=== PATIENT | female | born 1935 | race Caucasian/White ===

== ENCOUNTER 2018-06-11 15:13 | Inpatient (IN) ==
[2018-06-13] MEDS ORDERED: NON-FORMULARY MEDICATION 1 EACH EACH (Ondansetron [Zofran] 8 MG) PO PRN (19:03)
[2018-06-13] MEDS ORDERED: Ondansetron ODT 4 MG TAB.RAPDIS PO PRN (19:29)
[2018-06-13] MEDS: *HR* GlipiZIDE 5 MG TABLET PO SCH (21:09)
[2018-06-13] MEDS: Famotidine 20 MG TABLET PO SCH (21:10)
[2018-06-13] MEDS: Insulin DETEMIR 100 UNIT/ML X5UNITS SQ SCH (21:10)
--- NOTE | 2018-06-13 22:02 | Internal Med History&Physical ---
Date of Encounter: 06/14/18 Time of Encounter: 21:32 Assessment and Plan (1) Right sided cerebral hemisphere cerebrovascular accident (CVA) Current visit: Yes Status: Acute Right-sided CVA with dense left hemiplegia. She reportedly is maximum assistance. She will be seen by PT, OT, recreational therapy and others starting tomorrow. There appears be some neglect for the left side. No skin breakdown or edema. Frequent turning and positioning recommended. Plavix and aspirin. Patient has been worked up including carotid Doppler, echocardiogram, CT/MRI/MRA (2) Left-sided muscle weakness Current visit: Yes Status: Acute Dense left hemiplegia from right-sided CVA. As above. PT, OT, recreational therapy consults pending (3) History of chronic kidney disease Current visit: Yes Status: Acute History chronic kidney disease and followed by Dr. Mills. Currently renal function is doing well. We will continue monitoring closely. (4) Diabetes Current visit: Yes Status: Acute History of insulin-dependent diabetes mellitus. I was told that she is eating well. We will monitor blood sugars. She has Lantus each evening and glipizide twice a day. We will watch for hypoglycemic reactions. 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 Will follow at this point. Maintain current medications. Qualifiers: Hypertension type: essential hypertension Qualified Code(s): I10 - Essential (primary) hypertension (6) Aortic stenosis, severe Current visit: Yes Status: Chronic History of aortic stenosis followed by Dr. See. Patient had recent echocardiogram was 60-70% ejection fraction and concentric LVH. No history of congestive heart failure or angina. Being followed by cardiology. No indication for aortic valve intervention at the present time. (7) DVT prophylaxis Current visit: Yes Status: Acute Because she is basically bed bound we will use Lovenox for DVT prophylaxis until she is more mobile Internal Medicine - H&P: HPI Chief complaint: "I had a stroke" Admitted From: Hospital to Hospital Transfer Plans for Post Hospital Care: Home History of present illness: Ms. Kapadia is a 82 year old female with chronic history of diabetes, chronic kidney failure, hypertension, aortic stenosis was recently diagnosed as having a CVA is admitted to our rehab unit. Patient states that about 10 days ago or so she had a stroke when she was trying to get out of bed to a bedside commode and she thought her knee gave out, actually she had a left hemiplegia. She was brought to the emergency room at [facility] and had a negative CT scan was transferred to [facility]. Subsequent MRI was consistent with at least 2 infarcts in the anterior cerebral artery distribution. She has dense left hemiplegia. She had a workup including echocardiogram (6-65% EF with moderate LVH and severe aortic stenosis), carotid Doppler (bilateral nonstenotic plaque), MRA (right anterior cerebral artery infarction). She was placed on Plavix and aspirin and her statin was changed to simvastatin. She is now here for physical therapy. Patient denies any acute complaints of chest pain, palpitations, dyspnea, abdominal pain. She states she has had no troubles with her bowel or bladder control. However, I do not think the she is a very good historian. She know she cannot move her left arm or leg, but seems rather blase about it. She says she lives in a one-story house and only one step to enter. But this needs to be confirmed as I feel she is a rather poor historian at times. Past Med Surg Social Fam HX - Past Medical History Medical history: diabetes, GERD, hyperlipidemia, hypertension, renal disease (Stage III chronic kidney disease), other (Vitamin D deficiency) Additional medical history: Aortic stenosis Psychiatric history: no psych history - Past Surgical History Surgical History: knee replacement (Bilateral knee replacement, one by Dr. Schrader, one by Dr. Chacko) Additional surgical history: bilateral knee replacements - Social History Smoking Status: Never smoker Alcohol use: none Drug use: none Current living situation: Home - Independent (She lives in a one-story home. She says she has one step to get into the house. Could not confirm handicap accessibility) Recent Out of Country Travel Within the Last 8 Weeks: No Exposure or Possible Exposure to Illness During Travel: No - Family History Daughter Hx Family Cardiac Disorders: Yes (htn) Hx Family Neurologic Disorders: Yes (bells palsy) Mother Living Status: Age at : 77 Cause of : Diabetes CVA Father Living Status: Age at : 53 Cause of : Nonalcoholic cirrhosis Sister Living Status: Age at : 61 Cause of : Lung disease, COPD, lung transplant, heart disease Internal Medicine - H&P: Meds Aspirin [Lo-Dose Aspirin EC] 81 mg PO DAILY 02/09/17 [History] Lovastatin [Mevacor] 20 mg PO HS 02/09/17 [History] Multivitamin [Multivitamins] 1 cap PO DAILY 02/09/17 [History] Cholecalciferol (D-3) [Vitamin D] 5,000 unit PO DAILY 06/09/18 [History] Metoprolol Succinate [Toprol Xl] 25 mg PO DAILY 06/09/18 [History] Ondansetron [Zofran] 8 mg PO BID PRN 06/09/18 [History] glipiZIDE [Glipizide] 10 mg PO BID 06/09/18 [History] Ranitidine HCl [Acid Occupational Therapy Professor] 150 mg PO BID 06/10/18 [History] Clopidogrel [Plavix] 75 mg PO DAILY tablet 06/13/18 [Rx] Insulin Glargine,Hum.rec.anlog [Lantus Solostar] 40 unit SQ HS #0 06/13/18 [Rx] Allergy/AdvReac Type Severity Reaction Status Date / Time epinephrine AdvReac See Verified 06/10/18 16:40 Comments - Constitutional Constitutional: falls (She fell when she got out of bed with her CVA. She denies any sequela), weakness (Left-sided weakness) - EENT Eyes: no change in vision, no pain Nose, mouth and throat: other (She has a full set of dentures), no sinus pressure, no sore throat - Cardiovascular Cardiovascular ROS IM: no chest pain, no dyspnea, no dyspnea on exertion, no edema, no irregular heart rhythm, no lightheadedness, no palpitations - Respiratory Respiratory: no dyspnea, no hemoptysis, no dyspnea on exertion, no wheezing, no chest congestion - Gastrointestinal Gastrointestinal: no change in bowel habits, no constipation, no diarrhea, no hematochezia, no melena, no vomiting - Genitourinary Genitourinary: no urinary incontinence (Though nurses report she is incontinent) Menstruation: post menopausal - Musculoskeletal Additional comments: Weakness and left arm and leg as in history of present illness - Integumentary Integumentary IM: no rash - Neurological Neurological ROS: focal weakness (Left arm and leg weakness), no dizziness, no loss of vision - Psychiatric Psychiatric: no confusion, no depression - Constitutional Vitals: Temp Pulse Resp BP Pulse Ox 98.8 F 88 17 159/88 92 06/13/18 17:51 06/13/18 17:51 06/13/18 17:51 06/13/18 17:51 06/13/18 17:51 General appearance: Present: A&O X 3, pleasant, no acute distress, obese. Absent: answers questions appropriately (She told me that she was not incontinent of urine or stool. The nurses said otherwise) - Head Head exam: Present: atraumatic - Eye Eye exam: Present: EOMI, PERRL. Absent: scleral icterus Additional comments: I first saw her she was neglecting the left side/visual field cut. The later she was able to visualize in all feldman and follow some commands. She has short attentions span for that though. - ENT ENT exam: Present: mucous membranes moist, TM's normal bilaterally. Absent: normal oropharynx (Full set of dentures) - Neck Neck exam general surgery: Absent: lymphadenopathy, tenderness Additional comments: Mild bilateral carotid bruits left worse than right - Respiratory Respiratory exam: Present: CTAB. Absent: accessory muscle use, decreased breath sounds, respiratory distress, wheezes - Cardiovascular Cardiovascular exam: Present: RRR, +S1, +S2, systolic murmur (3/6 systolic murmur at the outlet with radiation to the apex) - GI/Abdominal GI/Abdominal exam: Present: soft. Absent: guarding, hepatomegaly, mass, rebound, tenderness - Extremities Exam Extremities exam: Absent: calf tenderness, mottling, pedal edema, tenderness - Neurological Exam Neurological exam: Present: CN II-XII intact (Gaze is conjugate but intermittently seems to be neglecting or short attention for visual feldman bilaterally) Additional comments: Dense left hemiplegia with no spontaneous movement of the left upper or lower extremity. No volitional movement noted. Upgoing toes on Babinski testing on the left side. No skin breakdown or edema. - Skin Additional comments: I found no skin breakdown on my exam. Internal Med - H&P Results - Labs CBC & Chem 7: 12/27/18 05:35 06/14/18 05:35 Labs: Labs are scheduled for tomorrow
[2018-06-14] MEDS: *HR* Enoxaparin 40 MG/0.4 ML SYRINGE SQ SCH (05:03)
[2018-06-14 06:01] LABS: Basophils # 0.1 K/mcL (0.0-0.2); Basophils % 0.5 %; Eosinophils # 0.3 K/mcL (0.0-0.6); Eosinophils % 2.3 %; Hematocrit 44.6 % (35.3-44.9); Hemoglobin 15.1 g/dL (11.5-15.4); Immature Granulocytes % 0.5 % (0-4); Lymphocytes # 1.7 K/mcL (0.6-4.6); Lymphocytes % 12.9 %; Mean Corpuscular HGB Conc 33.9 g/dL (31.6-35.5); Mean Corpuscular Hemoglobin 30.2 pg (28.0-33.3); Mean Corpuscular Volume 89.2 fL (83.0-100.0); Mean Platelet Volume 10.9 fL (9.4-12.4); Monocytes # 1.1 K/mcL (0.0-1.3); Monocytes % 8.1 %; Neutrophils # 10.1 K/mcL (1.6-8.9); Platelet Count 192 K/mcL (140-400); Red Cell Distribution Width 14.4 % (11.5-14.5); Segmented Neutrophils % 75.7 %
[2018-06-14 06:18] LABS: BUN/Creatinine Ratio 23 (6-26); Blood Urea Nitrogen 23 mg/dL (8-23); Calcium 8.9 mg/dL (8.6-10.3); Carbon Dioxide 24 mEq/L (23-29); Chloride 103 mEq/L (98-107); Glucose 131 mg/dL (70-105); Osmolality,Calculated 287 (280-300); Potassium 3.9 mEq/L (3.5-5.1); Sodium 136 mEq/L (136-145); eGFR For Non-African Americans 54 (> 60)
--- NOTE | 2018-06-14 07:44 | Internal Med Progress Note ---
Date of Encounter: 06/14/18 Time of Encounter: 07:38 - Assessment and plan (1) Right sided cerebral hemisphere cerebrovascular accident (CVA) Current Visit: Yes Status: Acute Assessment and plan: Right hemispheric CVA with dense left hemiplegia. Some movement noted and left forearm and hand today. Speech and swallowing intact. Short attention span noted. I suspect some neglect on the left side as well. (2) Left-sided muscle weakness Current Visit: Yes Status: Acute Assessment and plan: As above. Shown improvement since last night. (3) History of chronic kidney disease Current Visit: Yes Status: Acute Assessment and plan: Renal function is currently normal. (4) Diabetes Current Visit: Yes Status: Acute Assessment and plan: Glucose 133 this morning. We will continue to follow and use her usual medication. Qualifiers: Diabetes mellitus type: type 2 Diabetes mellitus fpc insulin use: unspecified intermediate designer insulin use status Diabetes mellitus complication status: with unspecified complications Qualified Code(s): E11.8 - Type 2 diabetes mellitus with unspecified complications (5) Hypertension Current Visit: No Status: Acute Assessment and plan: Blood pressure is under good control. Qualifiers: Hypertension type: essential hypertension Qualified Code(s): I10 - Essential (primary) hypertension (6) Aortic stenosis, severe Current Visit: Yes Status: Chronic Assessment and plan: History of aortic stenosis without CHF or angina. (7) DVT prophylaxis Current Visit: Yes Status: Acute Assessment and plan: Because she is going to be in bed and /or immobile a lot we will use Lovenox for now. - Subjective Interval history: Patient states that she rested okay. She denies any cardiac or respiratory symptoms. She knows she can not move the left arm or leg. She remembered who I was - Constitutional Vitals: Temp Pulse Resp BP Pulse Ox 98.3 F 80 18 155/95 95 06/14/18 05:07 06/14/18 05:07 06/14/18 05:07 06/14/18 05:07 06/14/18 05:07 General appearance: Present: A&O X 3, pleasant, no acute distress, obese. Absent: answers questions appropriately (She told me that she was not incontinent of urine or stool. The nurses said otherwise) Exam: She is sitting up in a wheelchair at the sink having had 2 person maximum assist to get into the wheelchair - Eye Additional comments: She can follow my finger in all feldman, but the attention span for that is very short - Respiratory Respiratory exam: Present: CTAB - Cardiovascular Cardiovascular exam: Present: RRR, +S1, +S2, systolic murmur (3/6 systolic murmur at the outlet and left sternal border) - GI/Abdominal GI/Abdominal exam: Present: soft. Absent: tenderness - Extremities Exam Extremities exam: Absent: calf tenderness, pedal edema, tenderness - Neurological Exam Additional comments: Her visual feldman appear to be intact but short attention span. While sitting up in a chair today she was unable to raise her left shoulder. She did have tone in the left forearm against gravity and had slight hand grasp. I could not elicit movement in the left lower extremity or toes, physical therapy said that she had some reflux spasm with movement. No apparent speech abnormalities. She has somewhat of a masklike face and stair, but has spontaneous speech appropriate. She had told me last night that she lives on one floor of a house but could not remember how many steps to get in. She told the physical therapist that she had a two-story home, "the true bathroom is upstairs" and she uses a bedside commode. I did not do a full Mini-Mental status examination. Internal Medicine: Result - Labs CBC & Chem 7: 06/14/18 05:35 06/14/18 05:35 Labs: Short CBC 06/14/18 Range/Units 05:35 WBC 13.3 H (4.3-11.1) K/mcL Hgb 15.1 (11.5-15.4) g/dL Hct 44.6 (35.3-44.9) % Plt Count 192 (140-400) K/mcL Neutrophils # 10.1 H (1.6-8.9) K/mcL BMP 06/14/18 05:35 Sodium 136 Potassium 3.9 Chloride 103 Carbon Dioxide 24 BUN 23 Creatinine 0.99 Glucose 131 H Calcium 8.9 Minimally elevated white blood cell count which is stable from when she was at [place]. Electrolytes and renal function are stable. Glucose minimally elevated. Consult Discharge Plan - Plan Referrals: Opal Escalona, MAINTENANCE TEAM MEMBER [Primary Care Provider] -
[2018-06-14] MEDS: Famotidine 20 MG TABLET PO SCH ×2 (08:10→21:02)
[2018-06-14] MEDS: Cholecalciferol (D-3) 1,000 UNIT TABLET PO SCH (08:10)
[2018-06-14] MEDS: Metoprolol XL (24 HR) Succ 25 MG TAB.ER.24H PO SCH (08:10)
[2018-06-14] MEDS: Aspirin Enteric Coated 81 MG Tablet PO SCH (08:10)
[2018-06-14] MEDS: Multivit/Ca/Min/Fe/FA 1 TAB TABLET PO SCH (08:10)
[2018-06-14] MEDS: *HR* GlipiZIDE 5 MG TABLET PO SCH ×2 (08:10→21:01)
[2018-06-14] MEDS: Insulin DETEMIR 100 UNIT/ML X5UNITS SQ SCH (21:02)
[2018-06-15] MEDS: *HR* Enoxaparin 40 MG/0.4 ML SYRINGE SQ SCH (04:54)
--- NOTE | 2018-06-15 08:29 | Internal Med Progress Note ---
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 She is completely flaccid on the outside she is on aspirin and a statin and Plavix (2) Left-sided muscle weakness Current Visit: Yes Status: Acute (3) Diabetes Current Visit: Yes Status: Acute Assessment and plan: Sugars are up and go ahead and add sliding scale and continue home medicine of Lantus and glipizide. 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 (4) Hypertension Current Visit: No Status: Acute Assessment and plan: On her home medication will continue to watch Qualifiers: Hypertension type: essential hypertension Qualified Code(s): I10 - Essential (primary) hypertension (5) Aortic stenosis, severe Current Visit: Yes Status: Chronic Assessment and plan: Continue to watch she does not have any chest pain or shortness of breath (6) History of chronic kidney disease Current Visit: Yes Status: Acute Assessment and plan: At baseline (7) DVT prophylaxis Current Visit: Yes Status: Acute Assessment and plan: She is on Lovenox - Subjective Interval history: She does not have any current complaints this morning she denies chest pain shortness of breath coughing she denies pain she denies dizziness. She is up in the dining room. She states her bowels and bladder been okay. - Constitutional Vitals: Temp Pulse Resp BP Pulse Ox 98.3 F 71 16 138/83 92 06/15/18 05:00 06/15/18 05:00 06/15/18 05:00 06/15/18 05:00 06/15/18 05:00 General appearance: Present: A&O X 3, pleasant, no acute distress, obese. Absent: answers questions appropriately (She told me that she was not in continent of urine or stool. The nurses said otherwise) - Head Head exam: Present: atraumatic - Respiratory Respiratory exam: Present: CTAB - Cardiovascular Cardiovascular exam: Present: RRR. Absent: systolic murmur - GI/Abdominal GI/Abdominal exam: Present: normal bowel sounds, soft, no peritoneal signs. Absent: mass, tenderness - Extremities Exam Extremities exam: Present: pedal edema - Neurological Exam Neurological exam: Absent: no focal deficits (Completely flaccid left upper and lower extremities) - Skin Skin exam: Present: dry, warm. Absent: rash Internal Medicine: Result - Labs CBC & Chem 7: 06/14/18 05:35 06/14/18 05:35 Consult Discharge Plan - Plan Referrals: Opal Escalona, WASTEWATER TREATMENT ENGINEER [Primary Care Provider] -
[2018-06-15] MEDS: Multivit/Ca/Min/Fe/FA 1 TAB TABLET PO SCH (09:16)
[2018-06-15] MEDS: Cholecalciferol (D-3) 1,000 UNIT TABLET PO SCH (09:16)
[2018-06-15] MEDS: Metoprolol XL (24 HR) Succ 25 MG TAB.ER.24H PO SCH (09:16)
[2018-06-15] MEDS: Aspirin Enteric Coated 81 MG Tablet PO SCH (09:16)
[2018-06-15] MEDS: *HR* GlipiZIDE 5 MG TABLET PO SCH ×2 (09:16→21:45)
[2018-06-15] MEDS: Famotidine 20 MG TABLET PO SCH ×2 (09:16→21:45)
[2018-06-15] MEDS ORDERED: D5% in Water 1,000 ML IVC PRN (09:27)
[2018-06-15] MEDS ORDERED: Dextrose Gel 15 GM/37.5 ML TUBE PO PRN ×2 (09:27)
[2018-06-15] MEDS ORDERED: *HR* Dextrose 50 % in Water (Syg) 50 ML SYRINGE IVP PRN (09:27)
[2018-06-15] MEDS: Insulin LISPRO 300 UNITS/3 ML VIAL SQ SCH ×3 (12:34→21:45)
[2018-06-15] MEDS: Insulin DETEMIR 100 UNIT/ML X5UNITS SQ SCH (21:45)
[2018-06-16] MEDS: *HR* Enoxaparin 40 MG/0.4 ML SYRINGE SQ SCH (06:00)
[2018-06-16] MEDS: Famotidine 20 MG TABLET PO SCH ×2 (08:03→20:42)
[2018-06-16] MEDS: Aspirin Enteric Coated 81 MG Tablet PO SCH (08:03)
[2018-06-16] MEDS: Multivit/Ca/Min/Fe/FA 1 TAB TABLET PO SCH (08:03)
[2018-06-16] MEDS: *HR* GlipiZIDE 5 MG TABLET PO SCH ×2 (08:03→20:42)
[2018-06-16] MEDS: Cholecalciferol (D-3) 1,000 UNIT TABLET PO SCH (08:03)
[2018-06-16] MEDS: Insulin LISPRO 300 UNITS/3 ML VIAL SQ SCH ×4 (08:09→20:34)
[2018-06-16] MEDS: Metoprolol XL (24 HR) Succ 25 MG TAB.ER.24H PO SCH (08:14)
--- NOTE | 2018-06-16 13:33 | Internal Med Progress Note ---
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 She is completely flaccid on the outside she is on aspirin and a statin and Plavix (2) Left-sided muscle weakness Current Visit: Yes Status: Acute Assessment and plan: due to the cva (3) Diabetes Current Visit: Yes Status: Acute Assessment and plan: Sugars are up and go ahead and add sliding scale and continue home medicine of Lantus and glipizide. Qualifiers: Diabetes mellitus type: type 2 Diabetes mellitus terminal make up operator insulin use: with terminal make up operator use Diabetes mellitus complication status: with unspecified complications Qualified Code(s): E11.8 - Type 2 diabetes mellitus with unspecified complications; Z79.4 - detention (current) use of insulin (4) Hypertension Current Visit: No Status: Acute Assessment and plan: On her home medication will continue to watch Qualifiers: Hypertension type: essential hypertension Qualified Code(s): I10 - Essential (primary) hypertension (5) Aortic stenosis, severe Current Visit: Yes Status: Chronic Assessment and plan: Continue to watch she does not have any chest pain or shortness of breath (6) History of chronic kidney disease Current Visit: Yes Status: Acute (7) DVT prophylaxis Current Visit: Yes Status: Acute Assessment and plan: She is on Lovenox - Subjective Interval history: She does not have any current complaints this morning she denies chest pain shortness of breath coughing she denies pain she denies dizziness. She is up in the rehab gym. She states her bowels and bladder been okay. she did stand this am to get changed. she does have some movement of the left hand today. no purposeful movement of the left leg - Constitutional Vitals: Temp Pulse Resp BP Pulse Ox 97.9 F 74 16 144/81 97 06/16/18 11:47 06/16/18 11:47 06/16/18 11:47 06/16/18 11:47 06/16/18 11:47 General appearance: Present: A&O X 3, pleasant, no acute distress, obese. Absent: answers questions appropriately (She told me that she was not incontinent of urine or stool. The nurses said otherwise) - Head Head exam: Present: atraumatic, normocephalic - Respiratory Respiratory exam: Present: CTAB - Cardiovascular Cardiovascular exam: Present: RRR, systolic murmur - GI/Abdominal GI/Abdominal exam: Present: normal bowel sounds, soft, no peritoneal signs. Absent: guarding, tenderness - Extremities Exam Extremities exam: Present: warm. Absent: pedal edema - Neurological Exam Neurological exam: Absent: strengths equal and symetr throughout (flaccid left side but minimal left hand movement), speech deficit - Skin Skin exam: Present: dry, warm. Absent: rash Internal Medicine: Result - Labs CBC & Chem 7: 06/14/18 05:35 06/14/18 05:35 Consult Discharge Plan - Plan Referrals: Opal Escalona, OIL FIELD EQUIPMENT MECHANIC [Primary Care Provider] -
[2018-06-16] MEDS: Acetaminophen 325 MG TABLET PO PRN (14:12)
[2018-06-16] MEDS: Insulin DETEMIR 100 UNIT/ML X5UNITS SQ SCH ×2 (20:42→20:46)
[2018-06-17] MEDS: *HR* Enoxaparin 40 MG/0.4 ML SYRINGE SQ SCH (05:23)
[2018-06-17] MEDS: Insulin LISPRO 300 UNITS/3 ML VIAL SQ SCH ×4 (07:21→21:04)
[2018-06-17] MEDS: Multivit/Ca/Min/Fe/FA 1 TAB TABLET PO SCH (07:35)
[2018-06-17] MEDS: Metoprolol XL (24 HR) Succ 25 MG TAB.ER.24H PO SCH (07:36)
[2018-06-17] MEDS: Famotidine 20 MG TABLET PO SCH ×2 (07:36→21:08)
[2018-06-17] MEDS: Aspirin Enteric Coated 81 MG Tablet PO SCH (07:36)
[2018-06-17] MEDS: Cholecalciferol (D-3) 1,000 UNIT TABLET PO SCH (07:36)
[2018-06-17] MEDS: *HR* GlipiZIDE 5 MG TABLET PO SCH ×2 (07:36→21:07)
--- NOTE | 2018-06-17 11:41 | Internal Med Progress Note ---
Date of Encounter: 06/18/18 Time of Encounter: 11:40 - Assessment and plan (1) Right sided cerebral hemisphere cerebrovascular accident (CVA) Current Visit: Yes Status: Acute Assessment and plan: Her for rehabilitation PT OT RT. She is completely flaccid on the outside she is on aspirin and a statin and Plavix (2) Left-sided muscle weakness Current Visit: Yes Status: Inactive Assessment and plan: due to the cva (3) Diabetes Current Visit: Yes Status: Acute Assessment and plan: Sugars are up and go ahead and add sliding scale and continue home medicine of Lantus and glipizide. 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 (4) Hypertension Current Visit: No Status: Acute Assessment and plan: On her home medication will continue to watch, did get low, back in range now Qualifiers: Hypertension type: essential hypertension Qualified Code(s): I10 - Essential (primary) hypertension (5) Aortic stenosis, severe Current Visit: Yes Status: Chronic Assessment and plan: Continue to watch she does not have any chest pain or shortness of breath (6) History of chronic kidney disease Current Visit: Yes Status: Acute Assessment and plan: At baseline (7) DVT prophylaxis Current Visit: Yes Status: Acute Assessment and plan: She is on Lovenox - Subjective Interval history: She does not have any current complaints this morning she denies chest pain shortness of breath coughing she denies pain she denies dizziness. She is in her room. She states her bowels and bladder been okay. . she does have some movement of the left hand today same as yesterday. seh is very pleasant. no pu rposeful movement of the left leg - Constitutional Vitals: Temp Pulse Resp BP Pulse Ox 98.2 F 69 18 120/77 94 06/17/18 11:00 06/17/18 11:00 06/17/18 11:00 06/17/18 11:00 06/17/18 11:00 General appearance: Present: A&O X 3, pleasant, no acute distress, obese. Absent: answers questions appropriately (She told me that she was not incontinent of urine or stool. The nurses said otherwise) - Head Head exam: Present: atraumatic, normocephalic - Respiratory Respiratory exam: Present: CTAB - Cardiovascular Cardiovascular exam: Present: RRR, systolic murmur - Extremities Exam Extremities exam: Present: full ROM (some hand movement of the left hand othe rwise flaccid left hemiplegia), warm. Absent: pedal edema - Skin Skin exam: Present: dry, warm Internal Medicine: Result - Labs CBC & Chem 7: 06/18/18 06:00 06/18/18 06:00 Consult Discharge Plan - Plan Referrals: Opal Escalona, CERAMIC CHEMIST [Primary Care Provider] -
[2018-06-17] MEDS: Acetaminophen 325 MG TABLET PO PRN (14:53)
[2018-06-17] MEDS: Insulin DETEMIR 100 UNIT/ML X5UNITS SQ SCH ×2 (21:05→21:08)
[2018-06-18] MEDS: *HR* Enoxaparin 40 MG/0.4 ML SYRINGE SQ SCH (05:46)
[2018-06-18 06:07] LABS: Basophils % 0.3 %; Eosinophils # 0.6 K/mcL (0.0-0.6); Eosinophils % 4.7 %; Hematocrit 42.9 % (35.3-44.9); Hemoglobin 14.4 g/dL (11.5-15.4); Immature Granulocytes % 0.4 % (0-4); Lymphocytes # 2.2 K/mcL (0.6-4.6); Lymphocytes % 18.5 %; Mean Corpuscular HGB Conc 33.6 g/dL (31.6-35.5); Mean Corpuscular Volume 89.4 fL (83.0-100.0); Mean Platelet Volume 10.9 fL (9.4-12.4); Monocytes # 0.8 K/mcL (0.0-1.3); Monocytes % 6.7 %; Neutrophils # 8.4 K/mcL (1.6-8.9); Platelet Count 207 K/mcL (140-400); Segmented Neutrophils % 69.4 %
[2018-06-18 06:44] LABS: BUN/Creatinine Ratio 20 (6-26); Blood Urea Nitrogen 17 mg/dL (8-23); Calcium 8.8 mg/dL (8.6-10.3); Carbon Dioxide 25 mEq/L (23-29); Chloride 106 mEq/L (98-107); Glucose 142 mg/dL (70-105); Osmolality,Calculated 292 (280-300); Potassium 4.2 mEq/L (3.5-5.1); Sodium 139 mEq/L (136-145); eGFR For Non-African Americans > 60 (> 60)
[2018-06-18] MEDS: Insulin LISPRO 300 UNITS/3 ML VIAL SQ SCH ×4 (08:49→20:37)
[2018-06-18] MEDS: Metoprolol XL (24 HR) Succ 25 MG TAB.ER.24H PO SCH (08:49)
[2018-06-18] MEDS: Aspirin Enteric Coated 81 MG Tablet PO SCH (09:59)
[2018-06-18] MEDS: Cholecalciferol (D-3) 1,000 UNIT TABLET PO SCH (09:59)
[2018-06-18] MEDS: *HR* GlipiZIDE 5 MG TABLET PO SCH ×2 (09:59→20:34)
[2018-06-18] MEDS: Famotidine 20 MG TABLET PO SCH ×2 (09:59→20:35)
[2018-06-18] MEDS: Multivit/Ca/Min/Fe/FA 1 TAB TABLET PO SCH (09:59)
--- NOTE | 2018-06-18 13:27 | Internal Med Progress Note ---
Date of Encounter: 06/18/18 Time of Encounter: 14:16 - Assessment and plan (1) Right sided cerebral hemisphere cerebrovascular accident (CVA) Current Visit: Yes Status: Acute Assessment and plan: Her for rehabilitation PT OT RT. She is completely flaccid on the outside she is on aspirin and a statin and Plavix.she is improving having incontinence of bowels and bladder but it is getting better (2) Left-sided muscle weakness Current Visit: Yes Status: Inactive Assessment and plan: due to the cva (3) Diabetes Current Visit: Yes Status: Acute Assessment and plan: Sugars are up and go ahead and add sliding scale and continue home medicine of Lantus and glipizide. 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 insulin use: with assisted use Diabetes mellitus complication status: with unspecified complications Qualified Code(s): E11.8 - Type 2 diabetes mellitus with unspecified complications; Z79.4 - intermediate project manager (current) use of insulin (4) Hypertension Current Visit: No Status: Acute Assessment and plan: On her home medication will continue to watch, did get low, back in range now Qualifiers: Hypertension type: essential hypertension Qualified Code(s): I10 - Essential (primary) hypertension (5) Aortic stenosis, severe Current Visit: Yes Status: Chronic Assessment and plan: Continue to watch she does not have any chest pain or shortness of breath (6) History of chronic kidney disease Current Visit: Yes Status: Acute Assessment and plan: At baseline (7) DVT prophylaxis Current Visit: Yes Status: Acute Assessment and plan: She is on Lovenox - Subjective Interval history: She does not have any current complaints this morning she denies chest pain shortness of breath coughing she denies pain she denies dizziness. She is in the rehab gym She is having problems with fecal and urine incontinence, but it is improved. some of the sensation is returning she does have some movement of the left hand she is playing connect [address] the ends down checker if the arm is supported. she is very pleasant. no purposeful movement of the left leg - Constitutional Vitals: Temp Pulse Resp BP Pulse Ox 97.6 F 71 16 146/75 96 06/18/18 11:00 06/18/18 11:00 06/18/18 11:00 06/18/18 11:00 06/18/18 11:00 General appearance: Present: A&O X 3, pleasant, no acute distress, obese. Absent: answers questions appropriately (She told me that she was not incontinent of urine or stool. The nurses said otherwise) - Head Head exam: Present: atraumatic, normocephalic - Respiratory Respiratory exam: Present: CTAB - Cardiovascular Cardiovascular exam: Present: RRR, systolic murmur - Extremities Exam Extremities exam: Present: warm. Absent: full ROM (flaccid left left hand improved movement of the left hand), pedal edema Internal Medicine: Result - Labs CBC & Chem 7: 06/18/18 06:00 06/18/18 06:00 Labs: Short CBC 06/18/18 Range/Units 06:00 WBC 12.1 H (4.3-11.1) K/mcL Hgb 14.4 (11.5-15.4) g/dL Hct 42.9 (35.3-44.9) % Plt Count 207 (140-400) K/mcL Neutrophils # 8.4 (1.6-8.9) K/mcL BMP 06/18/18 06:00 Sodium 139 Potassium 4.2 Chloride 106 Carbon Dioxide 25 BUN 17 Creatinine 0.87 Glucose 142 H Calcium 8.8 Consult Discharge Plan - Plan Referrals: Opal Escalona, CAKE MAKER [Primary Care Provider] -
[2018-06-18] MEDS: Acetaminophen 325 MG TABLET PO PRN (18:37)
[2018-06-18] MEDS: Insulin DETEMIR 100 UNIT/ML X5UNITS SQ SCH (20:36)
[2018-06-18] MEDS: Melatonin 3 MG TABLET PO PRN (22:59)
[2018-06-19] MEDS: *HR* Enoxaparin 40 MG/0.4 ML SYRINGE SQ SCH (06:23)
[2018-06-19] MEDS: Multivit/Ca/Min/Fe/FA 1 TAB TABLET PO SCH (07:57)
[2018-06-19] MEDS: Cholecalciferol (D-3) 1,000 UNIT TABLET PO SCH (07:57)
[2018-06-19] MEDS: Metoprolol XL (24 HR) Succ 25 MG TAB.ER.24H PO SCH (07:57)
[2018-06-19] MEDS: Aspirin Enteric Coated 81 MG Tablet PO SCH (07:57)
[2018-06-19] MEDS: *HR* GlipiZIDE 5 MG TABLET PO SCH ×2 (07:57→21:26)
[2018-06-19] MEDS: Insulin LISPRO 300 UNITS/3 ML VIAL SQ SCH ×4 (07:57→21:32)
[2018-06-19] MEDS: Famotidine 20 MG TABLET PO SCH (07:57)
--- NOTE | 2018-06-19 13:19 | Internal Med Progress Note ---
Date of Encounter: 06/19/18 Time of Encounter: 13:15 - Assessment and plan (1) Right sided cerebral hemisphere cerebrovascular accident (CVA) Current Visit: Yes Status: Acute Assessment and plan: Her for rehabilitation PT OT RT. She is completely flaccid on the outside she is on aspirin and a statin and Plavix.she is improving having incontinence of bowels and bladder but it is getting better, she is participating in therapy well (2) Left-sided muscle weakness Current Visit: Yes Status: Inactive (3) Diabetes Current Visit: Yes Status: Acute Assessment and plan: Sugars are up and go ahead and add sliding scale and continue home medicine of Lantus and glipizide. Qualifiers: Diabetes mellitus type: type 2 Diabetes mellitus manager intermediate insulin use: with manager intermediate use Diabetes mellitus complication status: with unspecified complications Qualified Code(s): E11.8 - Type 2 diabetes mellitus with unspecified complications; Z79.4 - prison (current) use of insulin (4) Hypertension Current Visit: No Status: Acute Qualifiers: Hypertension type: essential hypertension Qualified Code(s): I10 - Essential (primary) hypertension (5) Aortic stenosis, severe Current Visit: Yes Status: Chronic (6) History of chronic kidney disease Current Visit: Yes Status: Acute (7) DVT prophylaxis Current Visit: Yes Status: Acute - Subjective Interval history: She does not have any current complaints this morning she denies chest pain shortness of breath coughing she denies pain she denies dizziness. She is in the her room in bed She is having problems with fecal and urine incontinence, but it is improved. some of the sensation is returning she does have some movement of the left hand she is able to lift it up even more today. she is very pleasant. no purposeful movement of the left leg - Constitutional Vitals: Temp Pulse Resp BP Pulse Ox 97.7 F 73 16 167/75 94 06/19/18 12:29 06/19/18 12:29 06/19/18 12:29 06/19/18 12:29 06/19/18 12:29 General appearance: Present: A&O X 3, pleasant, no acute distress, obese. Absent: answers questions appropriately (She told me that she was not incontinent of urine or stool. The nurses said otherwise) - Head Head exam: Present: atraumatic, normocephalic - Respiratory Respiratory exam: Present: CTAB - Cardiovascular Cardiovascular exam: Present: RRR, systolic murmur - GI/Abdominal GI/Abdominal exam: Present: normal bowel sounds, soft, no peritoneal signs. Absent: guarding, tenderness - Extremities Exam Extremities exam: Present: warm. Absent: pedal edema - Neurological Exam Neurological exam: Absent: strengths equal and symetr throughout (She does have increased range of motion of the left hand and elbow today. Still flaccid left leg) Internal Medicine: Result - Labs CBC & Chem 7: 06/18/18 06:00 06/18/18 06:00 Consult Discharge Plan - Plan Referrals: Opal Escalona, BEHAVIORAL SERVICES TECH [Primary Care Provider] -
[2018-06-19] MEDS: Acetaminophen 325 MG TABLET PO PRN (13:34)
[2018-06-19] MEDS: Melatonin 3 MG TABLET PO PRN (21:26)
[2018-06-19] MEDS: Insulin DETEMIR 100 UNIT/ML X5UNITS SQ SCH (21:27)
[2018-06-20] MEDS: *HR* Enoxaparin 40 MG/0.4 ML SYRINGE SQ SCH (05:29)
[2018-06-20] MEDS: Insulin LISPRO 300 UNITS/3 ML VIAL SQ SCH ×4 (07:07→22:22)
[2018-06-20] MEDS: *HR* GlipiZIDE 5 MG TABLET PO SCH ×2 (08:16→22:17)
[2018-06-20] MEDS: Famotidine 20 MG TABLET PO SCH (08:17)
[2018-06-20] MEDS: Cholecalciferol (D-3) 1,000 UNIT TABLET PO SCH (08:17)
[2018-06-20] MEDS: Metoprolol XL (24 HR) Succ 25 MG TAB.ER.24H PO SCH (08:17)
[2018-06-20] MEDS: Aspirin Enteric Coated 81 MG Tablet PO SCH (08:17)
[2018-06-20] MEDS: Multivit/Ca/Min/Fe/FA 1 TAB TABLET PO SCH (08:17)
--- NOTE | 2018-06-20 10:27 | Internal Med Progress Note ---
Date of Encounter: 06/20/18 Time of Encounter: 10:20 - Assessment and plan (1) Right sided cerebral hemisphere cerebrovascular accident (CVA) Current Visit: Yes Status: Acute Assessment and plan: She is improving with her left hemiplegia. Marked improvement since I last saw her last . She walked 15 feet today. Improvement in hand grasp and dorsiflexion of foot (2) Left-sided muscle weakness Current Visit: Yes Status: Inactive (3) History of chronic kidney disease Current Visit: Yes Status: Acute (4) Diabetes Current Visit: Yes Status: Acute Assessment and plan: Sugars are being followed. Recently good control. Sliding scale available. Qualifiers: Diabetes mellitus type: type 2 Diabetes mellitus fdc insulin use: with exterminator use Diabetes mellitus complication status: with unspecified complications Qualified Code(s): E11.8 - Type 2 diabetes mellitus with unspecified complications; Z79.4 - assistant terminal manager (current) use of insulin (5) Hypertension Current Visit: Yes Status: Acute Assessment and plan: Blood pressure is under good control. Qualifiers: Hypertension type: essential hypertension Qualified Code(s): I10 - Essential (primary) hypertension (6) Aortic stenosis, severe Current Visit: Yes Status: Chronic Assessment and plan: No CHF or angina (7) DVT prophylaxis Current Visit: Yes Status: Acute - Subjective Interval history: Patient denies any cardiac or respiratory symptoms. Her bowels are moving. She thinks she is less incontinent, but that continues. She is thrilled because she walked 15 feet this morning with her walker. She is having better movement of left upper and lower extremities. No acute symptoms. Eating well. - Constitutional Vitals: Temp Pulse Resp BP Pulse Ox 98.2 F 67 16 124/78 96 06/20/18 06:48 06/20/18 06:48 06/20/18 06:48 06/20/18 06:48 06/20/18 06:48 General appearance: Present: A&O X 3, pleasant, no acute distress, obese. Absent: answers questions appropriately (Generally answers questions appropriately) - Respiratory Respiratory exam: Present: CTAB - Cardiovascular Cardiovascular exam: Present: RRR, +S1, +S2, systolic murmur (2/6 systolic murmur) - Extremities Exam Extremities exam: Absent: calf tenderness, tenderness - Neurological Exam Neurological exam: Present: CN II-XII intact Additional comments: In therapy she is able to grasp with her hand, slide the device up a pole against gravity using her biceps triceps forearm and hand grasp. She is able to raise her thigh off the bed, swing her lower leg forward and also raise her toes/dorsiflex against gravity Internal Medicine: Result - Labs CBC & Chem 7: 06/18/18 06:00 06/18/18 06:00 Consult Discharge Plan - Plan Referrals: Opal Escalona, VIBRATING SCREED OPERATOR [Primary Care Provider] -
[2018-06-20] MEDS: Acetaminophen 325 MG TABLET PO PRN (19:40)
[2018-06-20] MEDS: Insulin DETEMIR 100 UNIT/ML X5UNITS SQ SCH (22:18)
[2018-06-20] MEDS: Melatonin 3 MG TABLET PO PRN (22:18)
[2018-06-21] MEDS: *HR* Enoxaparin 40 MG/0.4 ML SYRINGE SQ SCH (05:09)
[2018-06-21] MEDS: Insulin LISPRO 300 UNITS/3 ML VIAL SQ SCH ×4 (07:42→21:30)
[2018-06-21] MEDS: Aspirin Enteric Coated 81 MG Tablet PO SCH (10:36)
[2018-06-21] MEDS: Metoprolol XL (24 HR) Succ 25 MG TAB.ER.24H PO SCH (10:37)
[2018-06-21] MEDS: Cholecalciferol (D-3) 1,000 UNIT TABLET PO SCH (10:37)
[2018-06-21] MEDS: *HR* GlipiZIDE 5 MG TABLET PO SCH ×2 (10:37→21:30)
[2018-06-21] MEDS: Famotidine 20 MG TABLET PO SCH (10:37)
[2018-06-21] MEDS: Multivit/Ca/Min/Fe/FA 1 TAB TABLET PO SCH (10:37)
--- NOTE | 2018-06-21 11:45 | Internal Med Progress Note ---
Date of Encounter: 06/21/18 Time of Encounter: 11:44 - Assessment and plan (1) Right sided cerebral hemisphere cerebrovascular accident (CVA) Current Visit: Yes Status: Acute Assessment and plan: In a week's time she is made vast improvement. Continue with PT and OT. Medically she is stable. (2) Left-sided muscle weakness Current Visit: Yes Status: Inactive Assessment and plan: As above. (3) History of chronic kidney disease Current Visit: Yes Status: Acute (4) Diabetes Current Visit: Yes Status: Acute Assessment and plan: Sugars are under reasonable control. 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 Qualifiers: Hypertension type: essential hypertension Qualified Code(s): I10 - Essential (primary) hypertension (6) Aortic stenosis, severe Current Visit: Yes Status: Chronic Assessment and plan: No angina or CHF (7) DVT prophylaxis Current Visit: Yes Status: Acute - Subjective Interval history: Patient denies any acute complaints of chest pain or acute problems. Therapy told me the patient will 45 feet today. She is assisting with toileting now. She is continent some of the time. Spontaneous use of the left upper extremity now. - Constitutional Vitals: Temp Pulse Resp BP Pulse Ox 97.7 F 64 16 133/72 96 06/21/18 06:46 06/21/18 06:46 06/21/18 06:46 06/21/18 06:46 06/21/18 06:46 General appearance: Present: A&O X 3, pleasant, no acute distress, obese Exam: I saw the patient in the therapy room. She was sitting upright and doing OT therapy with increased use of the left hand. - Neurological Exam Additional comments: I saw patient in therapy use her left arm. She can spontaneously raise her hand to the side of her head. She was scratching her face. She is manipulating large beads on a string putting them in a bucket. Still has some inattention to the left side and planning movements. Internal Medicine: Result - Labs CBC & Chem 7: 06/18/18 06:00 06/18/18 06:00 Consult Discharge Plan - Plan Referrals: Opal Escalona, DAMI [Primary Care Provider] -
--- NOTE | 2018-06-21 13:12 | Psychological Evaluation ---
Date of Encounter: 06/21/18 Time of Encounter: 09:30 History of Present Illness History of present illness: Ms. Kapadia is a 82 year old female. Patient had a stroke when she was trying to get out of bed to a bedside commode and she thought her knee gave out, actually she had a left hemiplegia. She was brought to the emergency room at [facility] and had a negative CT scan was transferred to [place]. Subsequent MRI was consistent with at least 2 infarcts in the anterior cerebral artery distribution. She has dense left hemiplegia. She had a workup including echocardiogram (6-65% EF with moderate LVH and severe aortic stenosis), carotid Doppler (bilateral nonstenotic plaque), MRA (right anterior cerebral artery infarction). Past Medical History - Psychiatric History Psychiatric history: Reports: depression Additional Psychiatric History: Pt stated she was depressed approximately 2 years ago after the of a close friend.She cried often but did not seek counseling. Home Medications and Allergies Aspirin [Lo-Dose Aspirin EC] 81 mg PO DAILY 02/09/17 [History] Lovastatin [Mevacor] 20 mg PO HS 02/09/17 [History] Multivitamin [Multivitamins] 1 cap PO DAILY 02/09/17 [History] Cholecalciferol (D-3) [Vitamin D] 5,000 unit PO DAILY 06/09/18 [History] Metoprolol Succinate [Toprol Xl] 25 mg PO DAILY 06/09/18 [History] Ondansetron [Zofran] 8 mg PO BID PRN 06/09/18 [History] glipiZIDE [Glipizide] 10 mg PO BID 06/09/18 [History] Ranitidine HCl [Acid Cotton Expert] 150 mg PO BID 06/10/18 [History] Clopidogrel [Plavix] 75 mg PO DAILY tablet 06/13/18 [Rx] Insulin Glargine,Hum.rec.anlog [Lantus Solostar] 40 unit SQ HS #0 06/13/18 [Rx] Allergy/AdvReac Type Severity Reaction Status Date / Time epinephrine AdvReac See Verified 06/10/18 16:40 Comments Social History - Social History Social History: Pt is since 1975. 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 She lives with her son and daughter in law but is independent except driving outside of local community. She attends mu-ism twice a week. She has 3 adult children and 10 grandkids. Her brittny is very important to her. - Tobacco Use Smoking Status: Never smoker - Alcohol Use Alcohol Use: none - Drug Use Drug Use: none Cognitive/Emotional Assessment - Cognitive Ability Language Function Ability: No Deficits Noted Verbal Communication Ability: Conversational Style Memory Description: Short Term Impaired Orientation: Person, Place, Time Ability to Follow Directions: Good Speech Pattern: Normal rate Calculations: Able to spell WORLD backw Additional Findings: Pt able to perform serial 3's from 20. Digits forward 5 and backward 4. Able to repeat 3/3 words and 1/3 after 5 min with no assistance with no assistance with categorical cue. Able to name pres, previous pres, and gov. Able to perform math calculations in head. There were issues with focused and sustained attention. - Emotional Status Affect Description: Blunted Coping Ability: Verbalizes positive coping skills Additional Findings: Pt noted need to "stop and think" due to attention issues and relies on her brittny to push through current situation. Insight and awareness of severity of situation is limited. Very focused only on left side of body - physical issues. Assessment & Plan - Diagnosis (1) Adjustment disorder with depressed mood - Prognosis Prognosis: Good - Treatment Plan Treatment Plan/Recommendations: will continue to follow while IP to develop and train coping strategies for managing the changes in her life since CVA and minimizing depressive symptoms. Next Session Date: 06/27/18 Procedures - Participants Therapy Participant: Patient - Session Time Session Start Time: 09:30 Session Stop Time: 10:00
[2018-06-21] MEDS: Acetaminophen 325 MG TABLET PO PRN (16:06)
[2018-06-21] MEDS: Insulin DETEMIR 100 UNIT/ML X5UNITS SQ SCH (21:30)
[2018-06-21] MEDS: Melatonin 3 MG TABLET PO PRN (21:30)
[2018-06-22] MEDS: *HR* Enoxaparin 40 MG/0.4 ML SYRINGE SQ SCH (05:35)
[2018-06-22] MEDS: Insulin LISPRO 300 UNITS/3 ML VIAL SQ SCH ×4 (07:46→20:26)
[2018-06-22] MEDS: Famotidine 20 MG TABLET PO SCH (07:58)
[2018-06-22] MEDS: *HR* GlipiZIDE 5 MG TABLET PO SCH ×2 (07:58→20:25)
[2018-06-22] MEDS: Aspirin Enteric Coated 81 MG Tablet PO SCH (07:58)
[2018-06-22] MEDS: Multivit/Ca/Min/Fe/FA 1 TAB TABLET PO SCH (07:58)
[2018-06-22] MEDS: Cholecalciferol (D-3) 1,000 UNIT TABLET PO SCH (07:58)
[2018-06-22] MEDS: Metoprolol XL (24 HR) Succ 25 MG TAB.ER.24H PO SCH (07:58)
--- NOTE | 2018-06-22 08:03 | Internal Med Progress Note ---
Date of Encounter: 06/22/18 Time of Encounter: 08:03 - Assessment and plan (1) Right sided cerebral hemisphere cerebrovascular accident (CVA) Current Visit: Yes Status: Acute Assessment and plan: She is making a remarkable recovery of her left hemiplegia with use of her left upper extremity and her ability to walk with a walker. Continue with her therapies. (2) Left-sided muscle weakness Current Visit: Yes Status: Inactive Assessment and plan: As above. Much improved. (3) History of chronic kidney disease Current Visit: Yes Status: Acute (4) Diabetes Current Visit: Yes Status: Acute Assessment and plan: Sugars are under reasonable control currently. Qualifiers: Diabetes mellitus type: type 2 Diabetes mellitus intermodal customer service insulin use: with intermodal customer service use Diabetes mellitus complication status: with unspecified complications Qualified Code(s): E11.8 - Type 2 diabetes mellitus with unspecified complications; Z79.4 - custodial (current) use of insulin (5) Hypertension Current Visit: Yes Status: Acute Assessment and plan: Blood pressure under good control. Qualifiers: Hypertension type: essential hypertension Qualified Code(s): I10 - Essential (primary) hypertension (6) Aortic stenosis, severe Current Visit: Yes Status: Chronic Assessment and plan: No angina or CHF noted. (7) History of depression Current Visit: Yes Status: Acute Assessment and plan: Patient was seen by psychologist yesterday. Patient has a history of depression in the past. Currently not needing any medicine intervention. Continue with supportive care. She will follow-up with psychologist. (8) DVT prophylaxis Current Visit: Yes Status: Acute - Subjective Interval history: Patient denies any cardiac or respiratory symptoms. She feels like she getting stronger. No acute symptoms. - Constitutional Vitals: Temp Pulse Resp BP Pulse Ox 97.9 F 70 16 118/78 96 06/22/18 07:42 06/22/18 07:42 06/22/18 07:42 06/22/18 07:42 06/22/18 07:42 General appearance: Present: A&O X 3, pleasant, no acute distress, obese Exam: She is sitting upright in a chair in the dining room. She is in no distress. - Respiratory Respiratory exam: Present: CTAB - Cardiovascular Cardiovascular exam: Present: RRR, +S1, +S2, systolic murmur (2 to 3/6 systolic murmur at the left sternal border) - Neurological Exam Additional comments: Patient is able to squeeze my hand with 3-4 out of 5 strength on the left hand. She can raise her shoulder to about 60 degrees of abduction. She can get her h and up to the side of her head. She is able to wheel her toes, partially raise her foot off the wheelchair pedal. Internal Medicine: Result - Labs CBC & Chem 7: 06/18/18 06:00 06/18/18 06:00 Consult Discharge Plan - Plan Referrals: Opal Escalona, FLOUR BLENDER HELPER [Primary Care Provider] -
[2018-06-22] MEDS: Acetaminophen 325 MG TABLET PO PRN (20:02)
[2018-06-22] MEDS: Insulin DETEMIR 100 UNIT/ML X5UNITS SQ SCH (20:25)
[2018-06-22] MEDS: Melatonin 3 MG TABLET PO PRN (20:44)
[2018-06-23] MEDS: *HR* Enoxaparin 40 MG/0.4 ML SYRINGE SQ SCH (05:37)
[2018-06-23] MEDS: Aspirin Enteric Coated 81 MG Tablet PO SCH (08:20)
[2018-06-23] MEDS: *HR* GlipiZIDE 5 MG TABLET PO SCH ×2 (08:20→21:54)
[2018-06-23] MEDS: Famotidine 20 MG TABLET PO SCH (08:20)
[2018-06-23] MEDS: Metoprolol XL (24 HR) Succ 25 MG TAB.ER.24H PO SCH (08:20)
[2018-06-23] MEDS: Cholecalciferol (D-3) 1,000 UNIT TABLET PO SCH (08:20)
[2018-06-23] MEDS: Multivit/Ca/Min/Fe/FA 1 TAB TABLET PO SCH (08:20)
[2018-06-23] MEDS: Insulin LISPRO 300 UNITS/3 ML VIAL SQ SCH ×4 (08:21→21:55)
[2018-06-23] MEDS: Acetaminophen 325 MG TABLET PO PRN ×2 (08:24→15:09)
--- NOTE | 2018-06-23 13:10 | Internal Med Progress Note ---
Date of Encounter: 06/23/18 Time of Encounter: 13:07 - Assessment and plan (1) CVA (cerebral vascular accident) Current Visit: No Status: Acute Assessment and plan: She is making good progress. Continue with therapies, as planned. She has made marked improvement versus her admission. Qualifiers: CVA mechanism: unspecified Qualified Code(s): I63.9 - Cerebral infarction, unspecified (2) Hypertension Current Visit: Yes Status: Acute Assessment and plan: Clinically stable. Will follow. Qualifiers: Hypertension type: essential hypertension Qualified Code(s): I10 - Essential (primary) hypertension (3) Aortic stenosis, severe Current Visit: Yes Status: Chronic Assessment and plan: Clinically and currently well compensated. (4) Leukocytosis Current Visit: No Status: Acute Assessment and plan: Used to be rechecked in a couple of days. Qualifiers: Leukocytosis type: unspecified Qualified Code(s): D72.829 - Elevated white blood cell count, unspecified (5) Diabetes Current Visit: Yes Status: Acute Assessment and plan: She has needed sliding scale coverage only once during her admission here. This reason, we will decreased frequency of her Accu-Cheks. 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 She is pleased with her progress and states that her left arm is still slightly weak as is her left leg. She denies other pain except with therapy she feels pain at her left leg, after a period of time. Bowels and bladder are working well. However, nursing notes that she is inco ntinent at night, of urine. Patient admits this. I informed her that we would check a screening urine sample. Patient has no complaint of chest discomfort, dyspnea, orthopnea, palpitations, nausea or vomiting, constipation or diarrhea, other changes in bowel habits, difficulty with urination, rash or itching, or other new complaints, except as mentioned above. Review of systems is otherwise negative. I discussed management of her care with nursing staff. - Constitutional Vitals: Temp Pulse Resp BP Pulse Ox 97.2 F L 63 15 116/72 97 06/23/18 07:25 06/23/18 07:25 06/23/18 07:25 06/23/18 07:25 06/23/18 07:25 Exam: Examination: (Except as mentioned above): General: In no apparent distress. Alert and oriented 3. Nondiaphoretic. Head: Atraumatic and normocephalic. Respiratory: No use of accessory muscles. Lungs are clear throughout. Normal airflow. Cardiovascular: Regular rate and rhythm without murmur appreciated. Abdomen: Bowel sounds are normal. No hepatosplenomegaly mass or tenderness appreciated. Obese and therefore difficult to palpate deeply. Patient is examined upright in chair and this also limits exam. Extremities: No cyanosis clubbing or edema. Skin: Warm and non-diaphoretic with no new lesions noted. Neurologic: Speech is normal and she has no gross motor deficits. However she has a mild left upper extremity weakness and is able to elevate arm to bowel is. The left lower extremity is significantly more weak than the right. She is probably 4- or 3+/5. Dorsiflexion is worse than plantar flexion. Internal Medicine: Result - Labs CBC & Chem 7: 06/18/18 06:00 06/18/18 06:00 Consult Discharge Plan - Plan Referrals: Opal Escalona, COMPOSITOR APPRENTICE [Primary Care Provider] -
[2018-06-23] MEDS: Melatonin 3 MG TABLET PO PRN (21:55)
[2018-06-23] MEDS: Insulin DETEMIR 100 UNIT/ML X5UNITS SQ SCH (21:55)
[2018-06-24] MEDS: *HR* Enoxaparin 40 MG/0.4 ML SYRINGE SQ SCH (04:38)
[2018-06-24] MEDS: Insulin LISPRO 300 UNITS/3 ML VIAL SQ SCH ×4 (08:29→20:48)
[2018-06-24] MEDS: Aspirin Enteric Coated 81 MG Tablet PO SCH (08:33)
[2018-06-24] MEDS: Multivit/Ca/Min/Fe/FA 1 TAB TABLET PO SCH (08:34)
[2018-06-24] MEDS: Famotidine 20 MG TABLET PO SCH (08:34)
[2018-06-24] MEDS: Metoprolol XL (24 HR) Succ 25 MG TAB.ER.24H PO SCH (08:34)
[2018-06-24] MEDS: *HR* GlipiZIDE 5 MG TABLET PO SCH ×2 (08:34→20:48)
[2018-06-24] MEDS: Cholecalciferol (D-3) 1,000 UNIT TABLET PO SCH (08:35)
[2018-06-24] MEDS: Acetaminophen 325 MG TABLET PO PRN (16:08)
--- NOTE | 2018-06-24 17:17 | Internal Med Progress Note ---
Date of Encounter: 06/24/18 Time of Encounter: 15:00 - Assessment and plan (1) CVA (cerebral vascular accident) Current Visit: No Status: Acute Assessment and plan: We will continue with therapies and follow to see about progress to home. Qualifiers: CVA mechanism: unspecified Qualified Code(s): I63.9 - Cerebral infarction, unspecified (2) Hypertension Current Visit: Yes Status: Acute Assessment and plan: This is clinically controlled. Qualifiers: Hypertension type: essential hypertension Qualified Code(s): I10 - Essential (primary) hypertension (3) Aortic stenosis, severe Current Visit: Yes Status: Chronic Assessment and plan: No current findings, signs, or symptoms. (4) Leukocytosis Current Visit: No Status: Acute Assessment and plan: This is clinically stable and we will recheck tomorrow. Qualifiers: Leukocytosis type: unspecified Qualified Code(s): D72.829 - Elevated white blood cell count, unspecified (5) Diabetes Current Visit: Yes Status: Acute Assessment and plan: Well controlled and will continue current regimen with sliding scale. 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 She still has some left-sided weakness but feels this is improved. She is pleased with the reports of nurses that she has improved since her admission. She is participating in therapy and has no other acute issues. Patient has no complaint of chest discomfort, dyspnea, orthopnea, palpitations, nausea or vomiting, constipation or diarrhea, other changes in bowel habits, difficulty with urination, rash or itching, or other new complaints, except as mentioned above. Review of systems is otherwise negative. I discussed management of her care with nursing staff. - Constitutional Vitals: Temp Pulse Resp BP Pulse Ox 97.3 F L 68 14 101/54 94 06/24/18 09:10 06/24/18 09:10 06/24/18 09:10 06/24/18 09:10 06/24/18 09:10 Exam: Examination: (Except as mentioned above): General: In no apparent distress. Alert and oriented 3. Nondiaphoretic. Head: Atraumatic and normocephalic. Respiratory: No use of accessory muscles. Lungs are clear throughout. Normal airflow. Cardiovascular: Regular rate and rhythm without murmur appreciated. Abdomen: Bowel sounds are normal. No hepatosplenomegaly mass or tenderness appreciated. Obese and therefore difficult to palpate deeply. Patient is examined upright in chair and this also limits exam. Extremities: No cyanosis clubbing or edema. Skin: Warm and non-diaphoretic with no new lesions noted. She still has mild left-sided weakness, as mentioned yesterday. This is worse dorsiflexion and plantar flexion. Internal Medicine: Result - Labs CBC & Chem 7: 06/18/18 06:00 06/18/18 06:00 Consult Discharge Plan - Plan Referrals: Opal Escalona, ENGINEERING PROGRAMMER [Primary Care Provider] -
[2018-06-24] MEDS: Insulin DETEMIR 100 UNIT/ML X5UNITS SQ SCH (20:48)
[2018-06-24] MEDS: Melatonin 3 MG TABLET PO PRN (20:49)
[2018-06-25] MEDS: Acetaminophen 325 MG TABLET PO PRN ×2 (02:32→16:54)
[2018-06-25] MEDS: *HR* Enoxaparin 40 MG/0.4 ML SYRINGE SQ SCH (06:28)
--- NOTE | 2018-06-25 07:30 | Internal Med Progress Note ---
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 Continue with PT and OT. (2) Left-sided muscle weakness Current Visit: Yes Status: Inactive (3) History of chronic kidney disease Current Visit: Yes Status: Acute Assessment and plan: Follow-up lab work is scheduled for tomorrow. (4) Diabetes Current Visit: Yes Status: Acute Assessment and plan: Sugars have been under reasonably good control. Her long-term glycohemoglobin is under adequate control. Qualifiers: Diabetes mellitus type: type 2 Diabetes mellitus fdc insulin use: with fdc use Diabetes mellitus complication status: with unspecified complications Qualified Code(s): E11.8 - Type 2 diabetes mellitus with unspecified complications; Z79.4 - ocean transportation intermediary (current) use of insulin (5) Hypertension Current Visit: Yes Status: Acute Assessment and plan: Blood pressure is under good control. Stay on same medication. Qualifiers: Hypertension type: essential hypertension Qualified Code(s): I10 - Essential (primary) hypertension (6) Aortic stenosis, severe Current Visit: Yes Status: Chronic Assessment and plan: No angina or CHF symptoms. (7) History of depression Current Visit: Yes Status: Acute (8) DVT prophylaxis Current Visit: Yes Status: Acute - Subjective Interval history: Patient is pleased that she is progressing with her hemiplegia. She is increasing her ADLs. Participating well with therapy. She denies any cardiac or respiratory symptoms. Bowels are moving well. Reportedly she still having some urinary incontinence at night. She is continent during the day. - Constitutional Vitals: Temp Pulse Resp BP Pulse Ox 97.1 F L 66 15 147/74 95 06/24/18 19:13 06/24/18 19:13 06/24/18 19:13 06/24/18 19:13 06/24/18 19:13 General appearance: Present: A&O X 3, pleasant, no acute distress, obese - Respiratory Respiratory exam: Present: CTAB - Cardiovascular Cardiovascular exam: Present: RRR, +S1, +S2, systolic murmur (2 to 3/6 systolic murmur) - GI/Abdominal GI/Abdominal exam: Present: soft. Absent: tenderness - Extremities Exam Extremities exam: Absent: calf tenderness, tenderness - Neurological Exam Additional comments: Continued mild left hemiplegia. Improving range of motion of the shoulder and can reach over her head now. Hand grasp is 4 out of 5. Ambulating with a walker. As tested in seated position a wheelchair, she has some quad strength but cannot lift her foot off the pedal yet. Minimal hamstring strength. Able to dorsiflex her left foot a bit. She has a very spontaneous smile today. Internal Medicine: Result - Labs CBC & Chem 7: 06/18/18 06:00 06/18/18 06:00 Consult Discharge Plan - Plan Referrals: Opal Escalona, BATTERY PARTS ASSEMBLER [Primary Care Provider] -
[2018-06-25] MEDS: Insulin LISPRO 300 UNITS/3 ML VIAL SQ SCH ×4 (08:57→21:00)
[2018-06-25] MEDS: Metoprolol XL (24 HR) Succ 25 MG TAB.ER.24H PO SCH (09:01)
[2018-06-25] MEDS: Cholecalciferol (D-3) 1,000 UNIT TABLET PO SCH (09:01)
[2018-06-25] MEDS: Famotidine 20 MG TABLET PO SCH (09:01)
[2018-06-25] MEDS: Multivit/Ca/Min/Fe/FA 1 TAB TABLET PO SCH (09:02)
[2018-06-25] MEDS: *HR* GlipiZIDE 5 MG TABLET PO SCH ×2 (09:02→20:55)
[2018-06-25] MEDS: Aspirin Enteric Coated 81 MG Tablet PO SCH (09:02)
[2018-06-25] MEDS: Insulin DETEMIR 100 UNIT/ML X5UNITS SQ SCH (20:58)
[2018-06-26] MEDS: *HR* Enoxaparin 40 MG/0.4 ML SYRINGE SQ SCH (05:19)
[2018-06-26 05:58] LABS: Basophils % 0.4 %; Eosinophils # 0.7 K/mcL (0.0-0.6); Eosinophils % 6.2 %; Hematocrit 43.4 % (35.3-44.9); Hemoglobin 14.4 g/dL (11.5-15.4); Immature Granulocytes % 0.4 % (0-4); Lymphocytes # 1.9 K/mcL (0.6-4.6); Lymphocytes % 17.7 %; Mean Corpuscular HGB Conc 33.2 g/dL (31.6-35.5); Mean Corpuscular Hemoglobin 30.2 pg (28.0-33.3); Mean Platelet Volume 10.7 fL (9.4-12.4); Monocytes # 0.8 K/mcL (0.0-1.3); Monocytes % 7.7 %; Neutrophils # 7.1 K/mcL (1.6-8.9); Platelet Count 195 K/mcL (140-400); Red Blood Count 4.77 M/mcL (3.82-4.97); Red Cell Distribution Width 14.5 % (11.5-14.5); Segmented Neutrophils % 67.6 %
[2018-06-26 06:12] LABS: Calcium 9.2 mg/dL (8.6-10.3); Potassium 4.8 mEq/L (3.5-5.1)
[2018-06-26] MEDS: Insulin LISPRO 300 UNITS/3 ML VIAL SQ SCH ×4 (07:49→20:33)
[2018-06-26] MEDS: Aspirin Enteric Coated 81 MG Tablet PO SCH (08:03)
[2018-06-26] MEDS: Famotidine 20 MG TABLET PO SCH (08:03)
[2018-06-26] MEDS: Multivit/Ca/Min/Fe/FA 1 TAB TABLET PO SCH (08:03)
[2018-06-26] MEDS: Cholecalciferol (D-3) 1,000 UNIT TABLET PO SCH (08:03)
[2018-06-26] MEDS: *HR* GlipiZIDE 5 MG TABLET PO SCH ×2 (08:03→20:36)
[2018-06-26] MEDS: Metoprolol XL (24 HR) Succ 25 MG TAB.ER.24H PO SCH (08:04)
[2018-06-26] MEDS: Acetaminophen 325 MG TABLET PO PRN (17:52)
[2018-06-26] MEDS: Insulin DETEMIR 100 UNIT/ML X5UNITS SQ SCH (20:36)
[2018-06-26] MEDS: Melatonin 3 MG TABLET PO PRN (20:37)
[2018-06-27] MEDS: *HR* Enoxaparin 30 MG/0.3 ML SYRINGE SQ SCH (04:21)
[2018-06-27] MEDS: Insulin LISPRO 300 UNITS/3 ML VIAL SQ SCH ×4 (08:01→20:40)
[2018-06-27] MEDS: Cholecalciferol (D-3) 1,000 UNIT TABLET PO SCH (08:29)
[2018-06-27] MEDS: Aspirin Enteric Coated 81 MG Tablet PO SCH (08:29)
[2018-06-27] MEDS: Multivit/Ca/Min/Fe/FA 1 TAB TABLET PO SCH (08:29)
[2018-06-27] MEDS: Famotidine 20 MG TABLET PO SCH (08:29)
[2018-06-27] MEDS: Metoprolol XL (24 HR) Succ 25 MG TAB.ER.24H PO SCH (08:29)
[2018-06-27] MEDS: *HR* GlipiZIDE 5 MG TABLET PO SCH ×2 (08:29→20:39)
--- NOTE | 2018-06-27 10:51 | Internal Med Progress Note ---
Date of Encounter: 06/27/18 Time of Encounter: 10:49 - Assessment and plan (1) Right sided cerebral hemisphere cerebrovascular accident (CVA) Current Visit: Yes Status: Acute Assessment and plan: She continues to make a remarkable recovery of her left hemiplegia. Continue with the therapies. (2) Left-sided muscle weakness Current Visit: Yes Status: Inactive (3) History of chronic kidney disease Current Visit: Yes Status: Acute (4) Diabetes Current Visit: Yes Status: Acute Qualifiers: Diabetes mellitus type: type 2 Diabetes mellitus long term care pharmacist insulin use: wit h long term care pharmacist use Diabetes mellitus complication status: with unspecified c omplications Qualified Code(s): E11.8 - Type 2 diabetes mellitus with uns pecified complications; Z79.4 - retirement (current) use of insulin (5) Hypertension Current Visit: Yes Status: Acute Qualifiers: Hypertension type: essential hypertension Qualified Code(s): I10 - Essential (primary) hypertension (6) Aortic stenosis, severe Current Visit: Yes Status: Chronic Assessment and plan: No angina or CHF symptoms. (7) History of depression Current Visit: Yes Status: Acute Assessment and plan: We will be seen by psychologist today. She seems to be adapting well and in good spirits. (8) DVT prophylaxis Current Visit: Yes Status: Acute (9) Sleep disorder Current Visit: Yes Status: Acute Assessment and plan: She states she is having trouble sleeping at night. Sometimes she goes to bed at 8 or 9:00 and wakes up at 11 PM. Sometimes she stays up until 11:00 if there is something interesting on TV. She states that when she cannot sleep she has troubles with her restless legs. At home she takes a homeopathic medication for restless legs. I told her that because of her stroke and other issues I should not start a "sleeping pill such as Ambien. We will try Benadryl and see if this helps with her sleep, and if sleep is good she may not notice the restless legs. I certainly want to minimize her medication intervention at this time. - Subjective Interval history: I cannot sleep. In my "restless legs" is a problem. At home she takes a homeopathic medication for restless leg. She feels that she is getting stronger, she apparently is walking with the parallel bars. She shows me how she has good range of motion of the left upper extremity. - Constitutional Vitals: Temp Pulse Resp BP Pulse Ox 98.2 F 59 16 116/68 93 06/27/18 07:00 06/27/18 07:00 06/27/18 07:00 06/27/18 07:00 06/27/18 07:00 General appearance: Present: A&O X 3, pleasant, no acute distress, obese - Neurological Exam Additional comments: I did not do a full neurological examination. Cranial nerves II through XII grossly intact and big social smile. She can raise her left upper extremity for full range of motion and hand grasp. Internal Medicine: Result - Labs CBC & Chem 7: 06/26/18 05:40 06/26/18 05:40 Consult Discharge Plan - Plan Referrals: Opal Escalona, SPLINE ROLLING MACHINE JOB SETTER [Primary Care Provider] -
--- NOTE | 2018-06-27 10:59 | Rehab Psychology Progress Note ---
Date of Encounter: 06/27/18 Time of Encounter: 10:15 Subjective - Patient Report Patient Report: Pt stated mood is "good", hopeful she will continue to make gains physically. Sleep issue - onset good but only sleeps 2 hours then up and "cat napping" rest of night thus tired and frustrated the rest of the day. Enjoying word search puzzles in her room and looking forward to the book stand her daughter ordered so she can keep up with her Bible study. Objective - WHODAS Functional Impairment Concentration, Problem-solving, Communication: Mild Social Functioning: None - Comments Functional Status Comments: Pt states continued concerns with independence for home. She needs to be able to get up and down from bed and chairs and transfer in/out of car. She additionally wants to be able to sit and do dishes and laundry. - Mental Status Mental Status Changes: Pt continues working on memory and attentional skills and is performing better than a week ago and pleased. Noted increase awareness of cognitive abilities and problem solving. Assessment and Plan - Diagnosis (1) Adjustment disorder with depressed mood - Response to Treatment Response to Treatment: Improved - Prognosis Prognosis: Excellent - Treatment Plan Treatment Plan Recommendations: Continue Current Plan/Goals Treatment Frequency: weekly as needed while inpatient Next Session Date: 07/04/18
[2018-06-27] MEDS: Acetaminophen 325 MG TABLET PO PRN (14:12)
[2018-06-27] MEDS: Insulin DETEMIR 100 UNIT/ML X5UNITS SQ SCH (20:40)
[2018-06-27] MEDS: Melatonin 3 MG TABLET PO PRN (21:39)
[2018-06-28] MEDS: *HR* Enoxaparin 30 MG/0.3 ML SYRINGE SQ SCH (05:44)
[2018-06-28] MEDS: Insulin LISPRO 300 UNITS/3 ML VIAL SQ SCH ×4 (07:22→20:52)
[2018-06-28] MEDS: Multivit/Ca/Min/Fe/FA 1 TAB TABLET PO SCH (08:08)
[2018-06-28] MEDS: *HR* GlipiZIDE 5 MG TABLET PO SCH ×2 (08:08→20:51)
[2018-06-28] MEDS: Aspirin Enteric Coated 81 MG Tablet PO SCH (08:08)
[2018-06-28] MEDS: Cholecalciferol (D-3) 1,000 UNIT TABLET PO SCH (08:08)
[2018-06-28] MEDS: Metoprolol XL (24 HR) Succ 25 MG TAB.ER.24H PO SCH (08:08)
[2018-06-28] MEDS: Famotidine 20 MG TABLET PO SCH (08:08)
[2018-06-28] MEDS: Acetaminophen 325 MG TABLET PO PRN (16:51)
[2018-06-28] MEDS: Melatonin 3 MG TABLET PO PRN (20:52)
[2018-06-28] MEDS: Insulin DETEMIR 100 UNIT/ML X5UNITS SQ SCH (20:52)
[2018-06-29] MEDS: Acetaminophen 325 MG TABLET PO PRN ×2 (01:02→21:18)
[2018-06-29] MEDS: *HR* Enoxaparin 30 MG/0.3 ML SYRINGE SQ SCH (04:52)
--- NOTE | 2018-06-29 07:05 | Internal Med Progress Note ---
Date of Encounter: 06/29/18 Time of Encounter: 07:03 - Assessment and plan (1) Right sided cerebral hemisphere cerebrovascular accident (CVA) Current Visit: Yes Status: Acute Assessment and plan: Continued improvement with her left hemiplegia. Continue with therapies. Medically she is stable. (2) Left-sided muscle weakness Current Visit: Yes Status: Inactive Assessment and plan: As above. (3) History of chronic kidney disease Current Visit: Yes Status: Acute (4) Diabetes Current Visit: Yes Status: Acute Assessment and plan: Sugars have been under reasonable control. No additional coverage needed Qualifiers: Diabetes mellitus type: type 2 Diabetes mellitus snf insulin use: with snf use Diabetes mellitus complication status: with unspecified complications Qualified Code(s): E11.8 - Type 2 diabetes mellitus with unspecified complications; Z79.4 - snf (current) use of insulin (5) Hypertension Current Visit: Yes Status: Acute Assessment and plan: Blood pressure under good control. Qualifiers: Hypertension type: essential hypertension Qualified Code(s): I10 - Essential (primary) hypertension (6) Aortic stenosis, severe Current Visit: Yes Status: Chronic Assessment and plan: No CHF or angina. (7) History of depression Current Visit: Yes Status: Acute Assessment and plan: Has been meeting with the psychologist weekly. No new intervention needed. (8) DVT prophylaxis Current Visit: Yes Status: Acute (9) Sleep disorder Current Visit: Yes Status: Acute - Subjective Interval history: Patient denies any acute symptoms. She thinks she is getting stronger. She is very optimistic. She denies any cardiac or respiratory symptoms. She states she has been walking with her walker with standby assistance Her blood sugars are under fairly good control. Her bowels have been moving. Nurses report no issues or problems with her. - Constitutional Vitals: Temp Pulse Resp BP Pulse Ox 97.9 F 64 16 137/76 95 06/28/18 20:00 06/28/18 20:00 06/28/18 20:00 06/28/18 20:00 06/28/18 20:00 General appearance: Present: A&O X 3, pleasant, no acute distress, obese - Respiratory Respiratory exam: Present: CTAB - Cardiovascular Cardiovascular exam: Present: RRR, +S1, +S2, systolic murmur (2 to 3/6 systolic murmur at the outlet) - Extremities Exam Extremities exam: Absent: calf tenderness, pedal edema - Neurological Exam Additional comments: Left hand grasp is 4+/ 5, biceps strength is 4+/5, she can raise her hands straight over her head while supine in bed. Dorsiflexion of foot is 4+/5, able to bend knee against downward pressure. No speech abnormalities. Internal Medicine: Result - Labs CBC & Chem 7: 06/26/18 05:40 06/26/18 05:40 Consult Discharge Plan - Plan Referrals: Opal Escalona, ELECTRIC SWITCH REPAIRER [Primary Care Provider] -
[2018-06-29] MEDS: Insulin LISPRO 300 UNITS/3 ML VIAL SQ SCH ×4 (08:37→21:17)
[2018-06-29] MEDS: Famotidine 20 MG TABLET PO SCH (08:38)
[2018-06-29] MEDS: *HR* GlipiZIDE 5 MG TABLET PO SCH ×2 (08:38→21:17)
[2018-06-29] MEDS: Multivit/Ca/Min/Fe/FA 1 TAB TABLET PO SCH (08:38)
[2018-06-29] MEDS: Aspirin Enteric Coated 81 MG Tablet PO SCH (08:38)
[2018-06-29] MEDS: Metoprolol XL (24 HR) Succ 25 MG TAB.ER.24H PO SCH (08:39)
[2018-06-29] MEDS: Cholecalciferol (D-3) 1,000 UNIT TABLET PO SCH (08:39)
[2018-06-29] MEDS: Insulin DETEMIR 100 UNIT/ML X5UNITS SQ SCH (21:18)
[2018-06-29] MEDS: Melatonin 3 MG TABLET PO PRN (21:18)
[2018-06-30] MEDS: *HR* Enoxaparin 30 MG/0.3 ML SYRINGE SQ SCH (05:32)
[2018-06-30] MEDS: Acetaminophen 325 MG TABLET PO PRN ×3 (05:45→21:21)
[2018-06-30] MEDS: Cholecalciferol (D-3) 1,000 UNIT TABLET PO SCH (07:56)
[2018-06-30] MEDS: Insulin LISPRO 300 UNITS/3 ML VIAL SQ SCH ×4 (07:56→20:06)
[2018-06-30] MEDS: Metoprolol XL (24 HR) Succ 25 MG TAB.ER.24H PO SCH (07:56)
[2018-06-30] MEDS: *HR* GlipiZIDE 5 MG TABLET PO SCH ×2 (07:56→20:07)
[2018-06-30] MEDS: Aspirin Enteric Coated 81 MG Tablet PO SCH (07:56)
[2018-06-30] MEDS: Multivit/Ca/Min/Fe/FA 1 TAB TABLET PO SCH (07:57)
[2018-06-30] MEDS: Famotidine 20 MG TABLET PO SCH (07:57)
--- NOTE | 2018-06-30 15:06 | Internal Med Progress Note ---
Date of Encounter: 06/30/18 Time of Encounter: 15:03 - Assessment and plan (1) Right sided cerebral hemisphere cerebrovascular accident (CVA) Current Visit: Yes Status: Acute Assessment and plan: Continues to make remarkable improvement from her left hemiplegia. Ambulating with a walker, standing at a table, and nearly full use of the left upper extremity. She states she can dress herself except for her shoes or socks (2) Left-sided muscle weakness Current Visit: Yes Status: Inactive (3) History of chronic kidney disease Current Visit: Yes Status: Acute Assessment and plan: Has been under good control. We will recheck labs on Monday (4) Diabetes Current Visit: Yes Status: Acute Assessment and plan: Sugars are under adequate control. Qualifiers: Diabetes mellitus type: type 2 Diabetes mellitus terminal operator insulin use: with fdc use Diabetes mellitus complication status: with unspecified complications Qualified Code(s): E11.8 - Type 2 diabetes mellitus with unspecified complications; Z79.4 - senior care (current) use of insulin (5) Hypertension Current Visit: Yes Status: Acute Assessment and plan: Blood pressure is under good control. Qualifiers: Hypertension type: essential hypertension Qualified Code(s): I10 - Essential (primary) hypertension (6) Aortic stenosis, severe Current Visit: Yes Status: Chronic Assessment and plan: No angina or CHF. (7) History of depression Current Visit: Yes Status: Acute Assessment and plan: Is being followed by the psychologist. Overall doing well. (8) Sleep disorder Current Visit: Yes Status: Acute Assessment and plan: Has slept well the past 2 nights. (9) DVT prophylaxis Current Visit: Yes Status: Acute - Subjective Interval history: Patient thinks that she is doing very well. She thought physical therapy was a bit boring today as she is advancing so well. She practiced doing some games and activities standing at a table. I hear she is ambulating in the hallway with a walker. She needs help getting into bed as her left lower extremity is still weak. She denies any cardiac or respiratory symptoms. She states she is still incontinent at night, unaware that she has urinated until morning. She is continent during the day. She states she has slept very well the past 2 nights. - Constitutional Vitals: Temp Pulse Resp BP Pulse Ox 97.6 F 70 16 122/73 95 06/30/18 07:55 06/30/18 07:55 06/30/18 07:55 06/30/18 07:55 06/30/18 07:55 General appearance: Present: A&O X 3, pleasant, no acute distress, obese - Respiratory Respiratory exam: Present: CTAB - Cardiovascular Cardiovascular exam: Present: RRR, +S1, +S2, systolic murmur (2/6 systolic murmur at the outlet) - Extremities Exam Extremities exam: Absent: calf tenderness, pedal edema - Neurological Exam Neurological exam: Present: CN II-XII intact, oriented X3 Additional comments: 4 out of 5 strength in the left hand compared to right. She can abduct and raise her arm above her head but not as straight as the opposite side. Left dorsiflexion is 3/5. Quads on the left side 3-4/5 Internal Medicine: Result - Labs CBC & Chem 7: 06/26/18 05:40 06/26/18 05:40 Labs: Sugars have been followed. Under adequate control. Consult Discharge Plan - Plan Referrals: Opal Escalona, PROOF SORTER [Primary Care Provider] -
[2018-06-30] MEDS: Insulin DETEMIR 100 UNIT/ML X5UNITS SQ SCH (20:10)
[2018-06-30] MEDS: Melatonin 3 MG TABLET PO PRN (21:19)
[2018-07-01] MEDS: Acetaminophen 325 MG TABLET PO PRN ×2 (03:58→21:25)
[2018-07-01] MEDS: *HR* Enoxaparin 30 MG/0.3 ML SYRINGE SQ SCH (04:00)
[2018-07-01] MEDS: Insulin LISPRO 300 UNITS/3 ML VIAL SQ SCH ×4 (07:11→20:35)
[2018-07-01] MEDS: Cholecalciferol (D-3) 1,000 UNIT TABLET PO SCH (07:47)
[2018-07-01] MEDS: Multivit/Ca/Min/Fe/FA 1 TAB TABLET PO SCH (07:47)
[2018-07-01] MEDS: Aspirin Enteric Coated 81 MG Tablet PO SCH (07:47)
[2018-07-01] MEDS: Famotidine 20 MG TABLET PO SCH (07:47)
[2018-07-01] MEDS: *HR* GlipiZIDE 5 MG TABLET PO SCH ×2 (07:47→20:35)
[2018-07-01] MEDS: Metoprolol XL (24 HR) Succ 25 MG TAB.ER.24H PO SCH (07:48)
[2018-07-01] MEDS ORDERED: Preparation H Ointment 30 GM TUBE TP PRN (15:48)
--- NOTE | 2018-07-01 15:59 | Internal Med Progress Note ---
Date of Encounter: 07/01/18 Time of Encounter: 15:56 - Assessment and plan (1) Right sided cerebral hemisphere cerebrovascular accident (CVA) Current Visit: Yes Status: Acute Assessment and plan: Continues improved from her right hemispheric CVA with dense left hemiplegia. Now markedly improved with her therapies. Continue with her PT, OT and recreational therapies. (2) Left-sided muscle weakness Current Visit: Yes Status: Acute Assessment and plan: As above. (3) History of chronic kidney disease Current Visit: Yes Status: Acute Assessment and plan: Follow-up lab work scheduled for tomorrow. (4) Diabetes Current Visit: Yes Status: Acute Assessment and plan: Sugars have been under good control. 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 Qualifiers: Hypertension type: essential hypertension Qualified Code(s): I10 - Essential (primary) hypertension (6) Aortic stenosis, severe Current Visit: Yes Status: Chronic Assessment and plan: No angina or CHF. (7) History of depression Current Visit: Yes Status: Acute Assessment and plan: Seems to be doing well. Followed by psychologist each week here. (8) Sleep disorder Current Visit: Yes Status: Acute Assessment and plan: She is sleeping well now. (9) Hemorrhoids Current Visit: Yes Status: Acute Assessment and plan: Patient complains of flare up of her chronic hemorrhoids. Does not sound like thrombosed hemorrhoid or severe pain. She wants to try some Preparation H and we will make those arrangements. Rectal examination if becomes complicated or not improved Qualifiers: Hemorrhoid type: unspecified Qualified Code(s): K64.9 - Unspecified hemorrhoids (10) DVT prophylaxis Current Visit: Yes Status: Acute - Subjective Interval history: Patient thinks that she is doing well. She denies any cardiac or respiratory symptoms. She is eating well. She states she still has some incontinence through the night of urine as she is sleeping so well. During the day she is dry. She does complain of "hemorrhoids". She has had this previously. She states they are "sticking out" and occasionally they may bleed. She denies that she has had any hard stools and straining for bowel movement. However, she may have some straining during her physical therapy activities. She states she continues to improve, she is walking with a walker, able to do more ADLs as left upper extremity strength and range of motion is improved. - Constitutional Vitals: Temp Pulse Resp BP Pulse Ox 97.2 F L 61 16 116/70 95 07/01/18 07:00 07/01/18 07:00 07/01/18 07:00 07/01/18 11:02 07/01/18 07:00 General appearance: Present: A&O X 3, pleasant, no acute distress, obese - Respiratory Respiratory exam: Present: CTAB - Cardiovascular Cardiovascular exam: Present: RRR, +S1, +S2, systolic murmur (2 to 3/6 systolic murmur) - Extremities Exam Extremities exam: Absent: calf tenderness, pedal edema - Neurological Exam Neurological exam: Present: CN II-XII intact, oriented X3. Absent: facial droop, speech deficit Additional comments: She cannot fully abduct her shoulder, biceps strength 4/5, hand grasp 4+/5, lower extremity 4/5. Internal Medicine: Result - Labs CBC & Chem 7: 06/26/18 05:40 06/26/18 05:40 Labs: Her blood sugar by Accu-Chek's have been under good control. Consult Discharge Plan - Plan Referrals: Opal Escalona, FILTRATION OPERATOR [Primary Care Provider] -
[2018-07-01] MEDS: Insulin DETEMIR 100 UNIT/ML X5UNITS SQ SCH (20:34)
[2018-07-01] MEDS: Melatonin 3 MG TABLET PO PRN (21:24)
[2018-07-02] MEDS: *HR* Enoxaparin 30 MG/0.3 ML SYRINGE SQ SCH (04:25)
[2018-07-02 05:25] LABS: Basophils # 0.1 K/mcL (0.0-0.2); Basophils % 0.6 %; Eosinophils # 0.8 K/mcL (0.0-0.6); Eosinophils % 8.2 %; Hematocrit 42.8 % (35.3-44.9); Immature Granulocytes % 0.3 % (0-4); Lymphocytes # 2.2 K/mcL (0.6-4.6); Lymphocytes % 21.8 %; Mean Corpuscular HGB Conc 32.7 g/dL (31.6-35.5); Mean Corpuscular Volume 91.8 fL (83.0-100.0); Mean Platelet Volume 10.9 fL (9.4-12.4); Monocytes # 0.8 K/mcL (0.0-1.3); Monocytes % 7.5 %; Neutrophils # 6.3 K/mcL (1.6-8.9); Platelet Count 182 K/mcL (140-400); Red Blood Count 4.66 M/mcL (3.82-4.97); Red Cell Distribution Width 14.6 % (11.5-14.5); Segmented Neutrophils % 61.6 %
[2018-07-02 05:39] LABS: Calcium 9.1 mg/dL (8.6-10.3); Potassium 4.6 mEq/L (3.5-5.1)
[2018-07-02] MEDS: Aspirin Enteric Coated 81 MG Tablet PO SCH (08:02)
[2018-07-02] MEDS: Multivit/Ca/Min/Fe/FA 1 TAB TABLET PO SCH (08:02)
[2018-07-02] MEDS: *HR* GlipiZIDE 5 MG TABLET PO SCH ×2 (08:02→21:33)
[2018-07-02] MEDS: Famotidine 20 MG TABLET PO SCH (08:02)
[2018-07-02] MEDS: Cholecalciferol (D-3) 1,000 UNIT TABLET PO SCH (08:02)
[2018-07-02] MEDS: Metoprolol XL (24 HR) Succ 25 MG TAB.ER.24H PO SCH (08:02)
[2018-07-02] MEDS: Acetaminophen 325 MG TABLET PO PRN ×2 (08:05→21:34)
[2018-07-02] MEDS: Melatonin 3 MG TABLET PO PRN (21:33)
[2018-07-02] MEDS: Insulin DETEMIR 100 UNIT/ML X5UNITS SQ SCH (21:36)
[2018-07-03] MEDS: *HR* Enoxaparin 30 MG/0.3 ML SYRINGE SQ SCH (04:59)
[2018-07-03] MEDS: Famotidine 20 MG TABLET PO SCH (08:22)
[2018-07-03] MEDS: Aspirin Enteric Coated 81 MG Tablet PO SCH (08:22)
[2018-07-03] MEDS: Multivit/Ca/Min/Fe/FA 1 TAB TABLET PO SCH (08:22)
[2018-07-03] MEDS: Cholecalciferol (D-3) 1,000 UNIT TABLET PO SCH (08:22)
[2018-07-03] MEDS: Metoprolol XL (24 HR) Succ 25 MG TAB.ER.24H PO SCH (08:22)
[2018-07-03] MEDS: *HR* GlipiZIDE 5 MG TABLET PO SCH ×2 (08:43→20:44)
[2018-07-03] MEDS: Insulin DETEMIR 100 UNIT/ML X5UNITS SQ SCH (20:45)
[2018-07-03] MEDS: Acetaminophen 325 MG TABLET PO PRN (21:26)
[2018-07-03] MEDS: Melatonin 3 MG TABLET PO PRN (21:26)
[2018-07-04] MEDS: *HR* Enoxaparin 40 MG/0.4 ML SYRINGE SQ SCH (04:39)
[2018-07-04] MEDS: Famotidine 20 MG TABLET PO SCH (07:58)
[2018-07-04] MEDS: *HR* GlipiZIDE 5 MG TABLET PO SCH ×2 (07:58→22:50)
[2018-07-04] MEDS: Cholecalciferol (D-3) 1,000 UNIT TABLET PO SCH (07:58)
[2018-07-04] MEDS: Multivit/Ca/Min/Fe/FA 1 TAB TABLET PO SCH (07:59)
[2018-07-04] MEDS: Aspirin Enteric Coated 81 MG Tablet PO SCH (07:59)
[2018-07-04] MEDS: Metoprolol XL (24 HR) Succ 25 MG TAB.ER.24H PO SCH (07:59)
--- NOTE | 2018-07-04 10:08 | Internal Med Progress Note ---
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 She continues with PT and OT. The plan is for discharge tomorrow as insurance refuses any ongoing inpatient care. Her daughter came for teaching yesterday and feels comfortable managing care at home. She will be discharged home tomorrow with home health care as well as home PT and OT. (2) Left-sided muscle weakness Current Visit: Yes Status: Acute (3) History of chronic kidney disease Current Visit: Yes Status: Acute Assessment and plan: Creatinine is normal 1.15 and GFR 55. (4) Diabetes Current Visit: Yes Status: Acute Assessment and plan: Sugars have been under good control by Accu-Chek. Qualifiers: Diabetes mellitus type: type 2 Diabetes mellitus intermediate card tender insulin use: with intermediate card tender use Diabetes mellitus complication status: with unspecified complications Qualified Code(s): E11.8 - Type 2 diabetes mellitus with unspecified complications; Z79.4 - computer terminal operator (current) use of insulin (5) Hypertension Current Visit: Yes Status: Acute Assessment and plan: Blood pressure under good control. Qualifiers: Hypertension type: essential hypertension Qualified Code(s): I10 - Essential (primary) hypertension (6) Aortic stenosis, severe Current Visit: Yes Status: Chronic Assessment and plan: No angina or CHF. (7) History of depression Current Visit: Yes Status: Acute (8) Sleep disorder Current Visit: Yes Status: Acute (9) Hemorrhoids Current Visit: Yes Status: Acute Qualifiers: Hemorrhoid type: unspecified Qualified Code(s): K64.9 - Unspecified hemorrhoids (10) DVT prophylaxis Current Visit: Yes Status: Acute - Subjective Interval history: Patient continues to improve and do well. She denies any cardiac or respiratory problems. She is continent during the day, has incontinence of urine through the night. Her sugars have been good. She is able to ambulate in the hallway with a wheeled walker and standby assistance and uses a gait belt for safety. There are times when she requires a standard wheelchair because of weakness, fatigue and she is unable at times to use the walker. She is now able improved with her left upper extremity to ma neuver the wheelchair in the home. Her daughter will be with her to provide assistance and she feels able to be discharged home tomorrow with the use of a wheelchair when she is unable to use the walker. She also needs a bedside commode. She is having frequent toileting because of incontinence of urine through the night. - Constitutional Vitals: Temp Pulse Resp BP Pulse Ox 97.9 F 65 18 134/77 95 07/04/18 07:52 07/04/18 07:52 07/04/18 07:52 07/04/18 07:52 07/04/18 07:52 General appearance: Present: A&O X 3, pleasant, no acute distress, obese - Respiratory Respiratory exam: Present: CTAB - Cardiovascular Cardiovascular exam: Present: RRR, +S1, +S2, systolic murmur (2/6 systolic murmur) - Extremities Exam Extremities exam: Absent: pedal edema - Neurological Exam Additional comments: I saw the patient get out of a standard armed chair without assistance. She ambulated down the hallway with a wheeled walker with standby assistance and oc casional cuing as she sometimes neglects the left side. Mild weakness of the left lower extremity but markedly improved from her admission. She was able to use her left upper extremity appropriately sufficient for the walker Internal Medicine: Result - Labs CBC & Chem 7: 07/02/18 05:10 07/02/18 05:10 Labs: Blood sugars are under good control with Accu-Cheks. Consult Discharge Plan - Plan Referrals: Opal Escalona, [employer]NU[employer] CL[employer] [Primary Care Provider] -
[2018-07-04] MEDS: Insulin DETEMIR 100 UNIT/ML X5UNITS SQ SCH (22:50)
[2018-07-04] MEDS: Acetaminophen 325 MG TABLET PO PRN (22:55)
[2018-07-04] MEDS: Melatonin 3 MG TABLET PO PRN (22:56)
--- NOTE | 2018-07-04 22:56 | Discharge Summary ---
- NOTES TO OUTPATIENT PROVIDER Notes to Outpatient Provider: 1. Patient will have home health with PT and OT consultations. 2. 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 rehabilitation unit having been transferred from [facility] having sustained right cerebrovascular infarction with dense left hemiplegia. When she came to our unit she could not move her left upper or lower extremity and had significant neglect of the left side. However, she quickly started to improve her strength and by time of discharge she had nearly full activity of the left upper extremity and able to ambulate with left lower extremity. Still has some neglect of the left side and needs re minders when ambulating to avoid hitting things on the left side. She has been treated with Plavix and aspirin. At discharge from [facility] it was recommended that she have a Holter monitor to rule out occult dysrhythmia. She has had no known dysrhythmia while at the hospital, but she was not on a monitor at the time. She will be discharged to home in the care of her daughter and will have home health with PT and OT consults. Will follow-up in the office with Opal Escalona in about a week. (2) Left-sided muscle weakness Priority: Secondary Status: Acute Comments: Left-sided weakness as above, by discharge was nearly resolved. (3) History of chronic kidney disease Priority: Secondary Status: Acute Comments: History chronic kidney disease but at discharge had normal creatinine and GFR in the 50s. (4) Diabetes Priority: Secondary Status: Acute Comments: Her sugars have been well controlled with her oral agent of glipizide and her night time Lantus. Her discharge doses were the same as on admission. Her glycohemoglobin on 06/13/18 was 7.6%. Qualifiers: Diabetes mellitus type: type 2 Diabetes mellitus usp insulin use: with oil heaterman use Diabetes mellitus complication status: with unspecified complications Qualified Code(s): E11.8 - Type 2 diabetes mellitus with unspecified complications; Z79.4 - computer terminal operator (current) use of insulin (5) Hypertension Priority: Secondary Status: Acute Comments: Hypertension remained under good control and no changes in her medications were made. Qualifiers: Hypertension type: essential hypertension Qualified Code(s): I10 - Essential (primary) hypertension (6) Aortic stenosis, severe Priority: Secondary Status: Chronic Comments: He is a history of aortic stenosis and has had no angina or CHF. When evaluated by cardiology she is not needing surgical intervention. (7) History of depression Priority: Secondary Status: Acute Comments: She has a history of depression and this stroke gave her some flattened affect. She was seen by psychologist at least twice while in our unit. She thought patient was improving and did not need medicine intervention. (8) Sleep disorder Priority: Secondary Status: Acute Comments: Patient had a big complaint of not being able to sleep. She was given Benadryl and melatonin and she did quite well. Prescription for Benadryl was given at discharge. (9) Hemorrhoids Priority: Secondary Status: Acute Comments: Patient did complaint of hemorrhoids late in the hospital course. At home she uses Preparation H. I did not get any history suggestive of thrombosed hemorrhoid or significant bleeding and no GI workup was done. Qualifiers: Hemorrhoid type: unspecified Qualified Code(s): K64.9 - Unspecified hemorrhoids Hospital course: Ms. Kapadia is a 82 year old female was admitted to our rehabilitation unit having sustained right hemispheric CVA with dense left hemiplegia. She underwent PT, OT, RT speech therapy and psychology evaluations. By time of discharge she was ambulating with a walker, feeding herself, dressing herself and toileting. See the diagnoses as above Discharge discussed with: patient - Time Spent with Patient Total time spent providing and/or coordinating discharge services: - Discharge Medications Prescriptions: Clopidogrel [Plavix] 75 mg PO DAILY #30 tablet DiphenhydraMINE [Benadryl] 25 mg PO HS PRN #30 capsule PRN Reason: Insomnia Home Medications: Aspirin [Lo-Dose Aspirin EC] 81 mg PO DAILY 02/09/17 [History] Lovastatin [Mevacor] 20 mg PO HS 02/09/17 [History] Multivitamin [Multivitamins] 1 cap PO DAILY 02/09/17 [History] Metoprolol Succinate [Toprol Xl] 25 mg PO DAILY 06/09/18 [History] glipiZIDE [Glipizide] 10 mg PO BID 06/09/18 [History] Ranitidine HCl [Acid Assistant Accounting Manager] 150 mg PO BID 06/10/18 [History] Insulin Glargine,Hum.rec.anlog [Lantus Solostar] 40 unit SQ HS #0 06/13/18 [Rx] Acetaminophen [Tylenol] 650 mg PO Q6HR PRN tablet 07/04/18 [Rx] Cholecalciferol (D-3) [Vitamin D] 5,000 unit PO DAILY #1 07/04/18 [Rx] Clopidogrel [Plavix] 75 mg PO DAILY #30 tablet 07/04/18 [Rx] DiphenhydraMINE [Benadryl] 25 mg PO HS PRN #30 capsule 07/04/18 [Rx] Allergies/Adverse Reactions: Allergy/AdvReac Type Severity Reaction Status Date / Time epinephrine AdvReac See Verified 06/10/18 16:40 Comments Date of admission: 06/13/18 17:40 Primary care physician: Opal Escalona CNP Consults: 06/21/18 02:08 Consult to Psychology [CONS] Routine Consulting Provider: Yumiko Mars Reason for Consult: Eval and Treat Call Completed: No 06/13/18 18:26 Consult to Occupational Therapy [CONS] Routine Comment: Evaluate, develop and implement POC Reason for Consult: eval Does patient have active BEDREST order?: No Is patient medically & hemodynamically stable?: Yes Consult to Physical Therapy [CONS] Routine Comment: Evaluate, develop and implement POC Reason for Consult: eval Does patient have active BEDREST order?: No Is patient medically & hemodynamically stable?: Yes Consult to Recreational Therapy [CONS] Routine Comment: Evaluate, develop and implement POC Consult to Correction [facility] [CONS] Routine Reason for SW Consult: d/c planning Consult to Speech Therapy [CONS] Routine Comment: Evaluate, develop and implement POC Reason for Consult: speech impairment Call Completed: Yes Discharging clinician: Anticipated date of discharge: 07/05/18 - Constitutional Vitals: Temp Pulse Resp BP Pulse Ox 98.6 F 62 19 109/66 96 07/04/18 19:41 07/04/18 19:41 07/04/18 19:41 07/04/18 19:41 07/04/18 19:41 General appearance: Present: A&O X 3, pleasant, no acute distress, obese - Patient Status Disposition: Home Health Service Condition: Good Functional capacity at discharge: uses cane/walker Overall status at discharge: patient is progressing back to baseline - Discharge Instructions Instructions: Ischemic Stroke (GEN) Follow Up With: Opal Escalona, [facility] [Primary Care Provider] - (Be seen in the office in about a week) - Diet and Activity Activity: ambulate only with your walker, as per physical therapy Diet: diabetic diet, low fat, low cholesterol
--- NOTE | 2018-07-04 23:11 | Physician Discharge Referral ---
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 For more information, call the [employer] Tobacco Quit Line at 7-320-OWPT-NOW. - Diet/Nutrition Diet/Nutrition Orders: No Added Salt (KAYLA), Cardiac, No Concentrated Sweets - Activity Activity Orders: Walker - Services Needed Following services are medically necessary services: Nursing, Physical Therapy, Occupational Therapy - Transfer Medications Prescriptions: Clopidogrel [Plavix] 75 mg PO DAILY #30 tablet DiphenhydraMINE [Benadryl] 25 mg PO HS PRN #30 capsule PRN Reason: Insomnia Home Medications: Aspirin [Lo-Dose Aspirin EC] 81 mg PO DAILY 02/09/17 [History] Lovastatin [Mevacor] 20 mg PO HS 02/09/17 [History] Multivitamin [Multivitamins] 1 cap PO DAILY 02/09/17 [History] Metoprolol Succinate [Toprol Xl] 25 mg PO DAILY 06/09/18 [History] glipiZIDE [Glipizide] 10 mg PO BID 06/09/18 [History] Ranitidine HCl [Acid Aircraft Systems Repairer] 150 mg PO BID 06/10/18 [History] Insulin Glargine,Hum.rec.anlog [Lantus Solostar] 40 unit SQ HS #0 06/13/18 [Rx] Acetaminophen [Tylenol] 650 mg PO Q6HR PRN tablet 07/04/18 [Rx] Cholecalciferol (D-3) [Vitamin D] 5,000 unit PO DAILY #1 07/04/18 [Rx] Clopidogrel [Plavix] 75 mg PO DAILY #30 tablet 07/04/18 [Rx] DiphenhydraMINE [Benadryl] 25 mg PO HS PRN #30 capsule 07/04/18 [Rx] Allergies/Adverse Reactions: Allergy/AdvReac Type Severity Reaction Status Date / Time epinephrine AdvReac See Verified 06/10/18 16:40 Comments Certification: Further, I certify that my clinical findings support that this patient is homebound (i.e. absences from home require considerable and taxing effort and are for medical reasons or faith services or infrequently or short duration when for other reasons) because: Homebound Reason: Patient requires assistance of a person or device to safely leave home, Leaving home requires considerable and taxing effort due to condition Attestation: My signature below is to certify that this patient is under my care and that I, or nurse practitioner, or a physician's assistant teacher primary working with me, has a [id number] encounter with this patient.
[2018-07-05] MEDS: *HR* Enoxaparin 40 MG/0.4 ML SYRINGE SQ SCH (04:52)
[2018-07-05 07:48] VITALS: BP 106/55
[2018-07-05] MEDS: Multivit/Ca/Min/Fe/FA 1 TAB TABLET PO SCH (08:39)
[2018-07-05] MEDS: Famotidine 20 MG TABLET PO SCH (08:39)
[2018-07-05] MEDS: Cholecalciferol (D-3) 1,000 UNIT TABLET PO SCH (08:39)
[2018-07-05] MEDS: Metoprolol XL (24 HR) Succ 25 MG TAB.ER.24H PO SCH (08:39)
[2018-07-05] MEDS: Aspirin Enteric Coated 81 MG Tablet PO SCH (08:39)
[2018-07-05] MEDS: *HR* GlipiZIDE 5 MG TABLET PO SCH (08:39)
[2018-07-05] MEDS: Acetaminophen 325 MG TABLET PO PRN (08:42)
== END 2018-07-05 15:30 | disposition home health service (06) | DRG 57 ==
LOC: INPGRE 06-13 17:40
PROVIDERS: ADMIT Family Medicine; ATTEND Family Medicine

== ENCOUNTER 2020-10-15 17:40 | Inpatient (IN) ==
[2020-10-16] MEDS ORDERED: polyethylene glycoL 3350 17 GM POWD.PACK PO PRN (18:13)
[2020-10-16] MEDS ORDERED: Acetaminophen 325 MG TABLET PO PRN (18:15)
[2020-10-16] MEDS ORDERED: *HR* Dextrose 50 % in Water (Vial) 50 ML VIAL IVP PRN (19:08)
[2020-10-16] MEDS ORDERED: D5% in Water 1,000 ML IVC PRN (19:08)
[2020-10-16] MEDS ORDERED: Dextrose Gel 15 GM/37.5 ML TUBE PO PRN ×2 (19:08)
[2020-10-16] MEDS: FISH OIL PO SCH (20:31)
[2020-10-16] MEDS: FATTY ACIDS PO SCH (20:31)
[2020-10-16] MEDS: OMEGA PO SCH (20:31)
[2020-10-16] MEDS ORDERED: Melatonin 3 MG TABLET PO SCH (21:00)
[2020-10-16] MEDS ORDERED: Insulin LISPRO 300 UNITS/3 ML VIAL SUBQ SCH (21:00)
[2020-10-16] MEDS ORDERED: Famotidine 20 MG TABLET PO SCH (21:00)
[2020-10-17] MEDS ORDERED: Dexamethasone 4 MG/ML VIAL IVP SCH (03:45)
[2020-10-17 04:04] LABS: ABG HCO3 25 mEq/L (21-27); ABG PCO2 44 mmHg (35-45); ABG PH 7.36 pH Units (7.32-7.45); ABG PO2 84 mmHg (85-104)
[2020-10-17 04:05] LABS: ABG Base Excess 0 mEq/L (-2 to 3); ABG Oxygen Saturation 96 % (95-98); ABG TCO2 27 mEq/L (20-26)
[2020-10-17] MEDS ORDERED: Furosemide 40 MG/4 ML VIAL IVP ONE (04:42)
[2020-10-17 05:37] LABS: Basophils # 0.1 K/mcL (0.0-0.2); Basophils % 0.5 %; Eosinophils # 0.5 K/mcL (0.0-0.6); Eosinophils % 4.7 %; Hematocrit 41.2 % (35.3-44.9); Hemoglobin 13.4 g/dL (11.5-15.4); Immature Granulocytes % 0.4 % (0-4); Lymphocytes # 1.5 K/mcL (0.6-4.6); Lymphocytes % 15.5 %; Mean Corpuscular HGB Conc 32.5 g/dL (31.6-35.5); Mean Corpuscular Hemoglobin 28.5 pg (28.0-33.3); Mean Corpuscular Volume 87.5 fL (83.0-100.0); Mean Platelet Volume 10.7 fL (9.4-12.4); Monocytes # 0.6 K/mcL (0.0-1.3); Monocytes % 6.3 %; Neutrophils # 6.9 K/mcL (1.6-8.9); Platelet Count 152 K/mcL (140-400); Red Blood Count 4.71 M/mcL (3.82-4.97); Red Cell Distribution Width 15.3 % (11.5-14.5); Segmented Neutrophils % 72.6 %; White Blood Count 9.5 K/mcL (4.3-11.1)
[2020-10-17 05:51] LABS: Calcium 8.4 mg/dL (8.6-10.3); Potassium 4.1 mEq/L (3.5-5.1)
[2020-10-17] MEDS ORDERED: *HR* Enoxaparin 40 MG/0.4 ML SYRINGE SQ SCH (06:00)
[2020-10-17] MEDS ORDERED: Insulin LISPRO 300 UNITS/3 ML VIAL SUBQ SCH (07:30)
[2020-10-17 07:47] LABS: ABG Base Excess 1 mEq/L (-2 to 3); ABG HCO3 27 mEq/L (21-27); ABG Oxygen Saturation 94 % (95-98); ABG PCO2 46 mmHg (35-45); ABG PH 7.37 pH Units (7.32-7.45); ABG PO2 74 mmHg (85-104); ABG TCO2 28 mEq/L (20-26)
[2020-10-17] MEDS ORDERED: *HR* Metformin 500 MG TABLET PO SCH (08:00)
[2020-10-17] MEDS ORDERED: Albuterol 2.5 MG/3 ML NEBULIZER IH SCH (08:00)
[2020-10-17 08:47] VITALS: BP 146/76
[2020-10-17] MEDS ORDERED: Ketoconazole 2% CRM 15 GM TUBE TP SCH (09:00)
[2020-10-17] MEDS ORDERED: Loratadine 10 MG TABLET PO SCH (09:00)
[2020-10-17] MEDS ORDERED: Multivit/Ca/Min/Fe/FA 1 TAB TABLET PO SCH (09:00)
[2020-10-17] MEDS ORDERED: Metoprolol XL (24 HR) Succ 25 MG TAB.ER.24H PO SCH (09:00)
[2020-10-17] MEDS ORDERED: Sennosides 8.6 MG TABLET PO SCH (09:00)
[2020-10-17] MEDS ORDERED: Cholecalciferol (D-3) 1,000 UNIT (25MCG) TABLET PO SCH (09:00)
[2020-10-17] MEDS: FISH OIL PO SCH (10:13)
[2020-10-17] MEDS: OMEGA PO SCH (10:13)
[2020-10-17] MEDS: FATTY ACIDS PO SCH (10:13)
== END 2020-10-17 11:55 | DRG 177 ==
LOC: INPGRE 10-16 16:44
PROVIDERS: ADMIT Family Medicine; ATTEND Family Medicine

== ENCOUNTER 2020-10-22 13:37 | Inpatient (IN) ==
[2020-10-23] MEDS ORDERED: Acetaminophen 325 MG TABLET PO PRN (01:49)
[2020-10-23] MEDS ORDERED: Dextrose Gel 15 GM/37.5 ML TUBE PO PRN ×4 (01:49→16:43)
[2020-10-23] MEDS ORDERED: *HR* Dextrose 50 % in Water (Vial) 50 ML VIAL IVP PRN ×2 (01:49→16:43)
[2020-10-23] MEDS ORDERED: polyethylene glycoL 3350 17 GM POWD.PACK PO PRN (01:49)
[2020-10-23] MEDS ORDERED: Albuterol 2.5 MG/3 ML NEBULIZER IH SCH (04:00)
[2020-10-23] MEDS: *HR* Enoxaparin 40 MG/0.4 ML SYRINGE SQ SCH (05:47)
[2020-10-23] MEDS: Aspirin Enteric Coated 81 MG Tablet PO SCH (08:44)
[2020-10-23] MEDS: Multivit/Ca/Min/Fe/FA 1 TAB TABLET PO SCH (08:44)
[2020-10-23] MEDS: Furosemide 20 MG TABLET PO SCH (08:44)
[2020-10-23] MEDS: *HR* Metformin 500 MG TABLET PO SCH ×2 (08:44→17:13)
[2020-10-23] MEDS: Loratadine 10 MG TABLET PO SCH (08:45)
[2020-10-23] MEDS: Metoprolol XL (24 HR) Succ 25 MG TAB.ER.24H PO SCH (08:45)
[2020-10-23] MEDS: Cholecalciferol (D-3) 1,000 UNIT (25MCG) TABLET PO SCH (08:45)
[2020-10-23] MEDS: FISH OIL PO SCH ×2 (08:58→21:52)
[2020-10-23] MEDS: FATTY ACIDS PO SCH ×2 (08:58→21:52)
[2020-10-23] MEDS: OMEGA PO SCH ×2 (08:58→21:52)
[2020-10-23] MEDS ORDERED: GlipiZIDE 5 MG TABLET PO SCH (09:00)
[2020-10-23] MEDS ORDERED: dexAMETHasone 4 MG TABLET PO SCH (09:00)
[2020-10-23 10:18] LABS: Basophils % 0.3 %; Eosinophils # 0.2 K/mcL (0.0-0.6); Eosinophils % 1.3 %; Hematocrit 44.8 % (35.3-44.9); Hemoglobin 14.7 g/dL (11.5-15.4); Immature Granulocytes % 0.5 % (0-4); Lymphocytes # 2.1 K/mcL (0.6-4.6); Lymphocytes % 15.2 %; Mean Corpuscular HGB Conc 32.8 g/dL (31.6-35.5); Mean Corpuscular Hemoglobin 28.3 pg (28.0-33.3); Mean Corpuscular Volume 86.3 fL (83.0-100.0); Mean Platelet Volume 11.4 fL (9.4-12.4); Monocytes # 0.9 K/mcL (0.0-1.3); Monocytes % 6.3 %; Neutrophils # 10.6 K/mcL (1.6-8.9); Platelet Count 180 K/mcL (140-400); Red Blood Count 5.19 M/mcL (3.82-4.97); Red Cell Distribution Width 14.6 % (11.5-14.5); Segmented Neutrophils % 76.4 %; White Blood Count 13.9 K/mcL (4.3-11.1)
[2020-10-23 10:30] LABS: BUN/Creatinine Ratio 36 (6-26); Blood Urea Nitrogen 34 mg/dL (8-23); Calcium 8.5 mg/dL (8.6-10.3); Carbon Dioxide 28 mEq/L (23-29); Chloride 98 mEq/L (98-107); Glucose 265 mg/dL (70-105); Osmolality,Calculated 297 (280-300); Potassium 3.5 mEq/L (3.5-5.1); Sodium 135 mEq/L (136-145); eGFR For African Americans > 60 (> 60); eGFR For Non-African Americans 57 (> 60)
[2020-10-23] MEDS ORDERED: D5% in Water 1,000 ML IVC PRN (16:43)
[2020-10-23] MEDS: Insulin LISPRO 300 UNITS/3 ML VIAL SUBQ SCH (17:13)
[2020-10-23] MEDS ORDERED: Melatonin 3 MG TABLET PO SCH (21:00)
[2020-10-23] MEDS ORDERED: Famotidine 20 MG TABLET PO SCH (21:00)
[2020-10-23] MEDS ORDERED: Insulin DETEMIR 100 UNIT/ML per UNIT SUBQ ONE (21:00)
[2020-10-23] MEDS ORDERED: Insulin DETEMIR 100 UNIT/ML X5UNITS SUBQ SCH (21:00)
[2020-10-24] MEDS: *HR* Enoxaparin 40 MG/0.4 ML SYRINGE SQ SCH (05:29)
[2020-10-24 06:12] LABS: Basophils % 0.2 %; Eosinophils # 0.2 K/mcL (0.0-0.6); Hematocrit 40.9 % (35.3-44.9); Hemoglobin 13.3 g/dL (11.5-15.4); Immature Granulocytes % 0.6 % (0-4); Lymphocytes # 3.1 K/mcL (0.6-4.6); Mean Corpuscular HGB Conc 32.5 g/dL (31.6-35.5); Mean Corpuscular Hemoglobin 27.8 pg (28.0-33.3); Mean Corpuscular Volume 85.6 fL (83.0-100.0); Mean Platelet Volume 11.3 fL (9.4-12.4); Monocytes # 1.4 K/mcL (0.0-1.3); Platelet Count 185 K/mcL (140-400); Red Blood Count 4.78 M/mcL (3.82-4.97); Red Cell Distribution Width 14.5 % (11.5-14.5); Segmented Neutrophils % 72.2 %; White Blood Count 17.4 K/mcL (4.3-11.1)
[2020-10-24 06:20] LABS: Neutrophils # 12.6 K/mcL (1.6-8.9)
[2020-10-24 06:40] LABS: BUN/Creatinine Ratio 50 (6-26); Blood Urea Nitrogen 51 mg/dL (8-23); Calcium 8.3 mg/dL (8.6-10.3); Carbon Dioxide 26 mEq/L (23-29); Chloride 101 mEq/L (98-107); Glucose 191 mg/dL (70-105); Osmolality,Calculated 299 (280-300); Potassium 4.1 mEq/L (3.5-5.1); Sodium 135 mEq/L (136-145); eGFR For African Americans > 60 (> 60); eGFR For Non-African Americans 52 (> 60)
[2020-10-24] MEDS ORDERED: predniSONE 20 MG TABLET PO SCH (09:00)
[2020-10-24 09:40] LABS: Hematocrit 40.1 % (35.3-44.9); Hemoglobin 13.2 g/dL (11.5-15.4)
[2020-10-24] MEDS: FATTY ACIDS PO SCH (09:56)
[2020-10-24] MEDS: Aspirin Enteric Coated 81 MG Tablet PO SCH (09:56)
[2020-10-24] MEDS: Furosemide 20 MG TABLET PO SCH (09:56)
[2020-10-24] MEDS: OMEGA PO SCH (09:56)
[2020-10-24] MEDS: FISH OIL PO SCH (09:56)
[2020-10-24] MEDS: *HR* Metformin 500 MG TABLET PO SCH (09:56)
[2020-10-24] MEDS: Insulin LISPRO 300 UNITS/3 ML VIAL SUBQ SCH ×2 (09:56→12:31)
[2020-10-24] MEDS: Loratadine 10 MG TABLET PO SCH (09:56)
[2020-10-24] MEDS: Multivit/Ca/Min/Fe/FA 1 TAB TABLET PO SCH (09:57)
[2020-10-24] MEDS: Cholecalciferol (D-3) 1,000 UNIT (25MCG) TABLET PO SCH (09:57)
[2020-10-24] MEDS: Metoprolol XL (24 HR) Succ 25 MG TAB.ER.24H PO SCH (09:57)
[2020-10-24 12:43] VITALS: BP 137/87
[2020-10-26] MEDS ORDERED: Ketoconazole 2% CRM 15 GM TUBE TP SCH (09:00)
== END 2020-10-24 12:57 | disposition short-term general hospital (02) | DRG 56 ==
LOC: INPGRE 20:10
PROVIDERS: ADMIT Family Medicine; ATTEND Family Medicine